=== PATIENT | female | born 1990 | race Caucasian/White ===

== ENCOUNTER 2021-04-18 06:58 | Inpatient (IN) | payer BC ==
[2021-04-18] MEDS ORDERED: Calcium Carbonate 500 MG Tab.Chew PO PRN (07:45)
[2021-04-18] MEDS ORDERED: Oxytocin/Lactated Ringers 10 UNIT/1,000 ML BAG IV SCH ×2 (07:45)
[2021-04-18] MEDS ORDERED: Nalbuphine 10 MG/1 ML Vial IVPUSH PRN (07:45)
[2021-04-18] MEDS ORDERED: Acetaminophen 325 MG Tab PO PRN (07:45)
[2021-04-18] MEDS ORDERED: Ondansetron 4 MG/2 ML SDV IVPUSH PRN ×2 (07:45→13:22)
[2021-04-18] MEDS ORDERED: Sodium Chloride 0.9% 10 ML Syringe FLUSH PRN (07:45)
[2021-04-18] MEDS ORDERED: Lidocaine 1% 50 ML MDV INJECT ONE (07:45)
[2021-04-18] MEDS ORDERED: Misoprostol 25 MCG (1/4 of 100 MCG) Tab ONE (08:13)
[2021-04-18] MEDS ORDERED: Misoprostol 25 MCG (1/4 of 100 MCG) Tab VAG PRN (08:15)
--- NOTE | 2021-04-18 08:31 | PCM.LDHP ---
L&D History of Present Illness - General Date of Service: 04/18/21 Admit Problem/Dx: Patient Status Order with Admit Dx/Problem 04/18/21 07:45 Patient Status [ADT] Routine Admission Diagnosis/Problem Admission Diagnosis/Problem Term Source of Information: Patient History Limitations: Reports: No Limitations - History of Present Illness Introduction:: 30 yo at 39+1 weeks gestation admitted for elective induction of labor due to borderline COURTNEY at 6.5. BPP was done on 04/09/21 and score was 8/8 and COURTNEY 6.2, EFW 7 lb 10 oz. Repeated BPP on 04/13/21 and COURTNEY was 6.5 and 8/8. otherwise has been unremarkable. She does have blood type A neg and antibody negative and received Rhogam 02/06/21. GBS negative. 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 She has been on va lacyclovir 500 mg bid since 36 weeks for suppression and she has no prodromal sx and examination of perineum today is negative for any lesions. Other labs include Rubella immune, RPR neg, HIV neg, HBsAg neg, HCV antibody neg. Her TSH was elevated and we did start her on levothyroxine in the first trimester, have been following TSH and current dose is 50 mcg daily. 1 hour glucola was 79. She breastfed with all 3 of her other babies and plans to breastfeed with this baby as well. She has been fully vaccinated for COVID and had her booster dose on 04/10/21. Has had Tdap and influenza vaccine with this . She has moderately severe varicose veins and has been wearing compression stockings during the . She has been feeling some BH, but no contractions. Membranes intact. On exam this am, cervix 1 cm, 50% effaced, vtx and station -2. Cytotec 25 mcg tab was inserted vaginally at 0815 for ripening of the cervix and induction. - Related Data Allergies/Adverse Reactions: Allergies Allergy/AdvReac Type Severity Reaction Status Date / Time amoxicillin Allergy Rash Verified 04/18/21 07:59 Home Medications: Home Meds Levothyroxine Sodium [Levothyroxine] 50 mcg PO DAILY 04/18/21 [History] No122/Iron/Folic Acid [ Multi Tablet] 1 each PO DAILY 04/18/21 [History] valACYclovir HCl [Valtrex] 500 mg PO BID 04/18/21 [History] Past Medical History Endocrine/Metabolic History: Reports: Hypothyroidism - Infectious Disease History Infectious Disease History: Reports: Herpes Social & Family History - Tobacco Use Tobacco Use Status *Q: Never Tobacco User Tobacco Use Within Last Twelve Months: No - Living Situation & Occupation Living situation: Reports: Occupation: Employed H&P Review of Systems - Review of Systems: Review Of Systems: See Below General: Reports: No Symptoms HEENT: Reports: No Symptoms Pulmonary: Reports: No Symptoms Cardiovascular: Reports: Edema Gastrointestinal: Reports: No Symptoms Genitourinary: Reports: No Symptoms Musculoskeletal: Reports: No Symptoms Skin: Reports: No Symptoms Psychiatric: Reports: No Symptoms Neurological: Reports: No Symptoms Hematologic/Lymphatic: Reports: No Symptoms Immunologic: Reports: No Symptoms L&D Exam - Exam Exam: See Below - Vital Signs Vital Signs: Last Vital Signs Temp 36.2 C 04/18/21 07:30 Pulse 58 L 04/18/21 07:30 Resp 16 04/18/21 07:30 BP 115/70 04/18/21 07:30 Pulse Ox 98 04/18/21 07:30 Weight: 89.494 kg - OB Specific Contraction Frequency (min): no contractions Movement: Active Heart Tones: Present Heart Tones per Min: 125 Heart Rate (FHR) Variability: Moderate (6-25 bpm) Presentation: Vertex Estimated Weight: 8 lb - Juan Score Juan Score Cervix Position: Midposition Juan Score Consistency: Medium Juan Score Effacement: 31-50% Juan Score Dilation: 1-2 cm Juan Score Infant's Station: -2 Juan Score Total: 5 - Exam General: Alert, Oriented HEENT: Conjunctiva Clear, EACs Clear, EOMI, Hearing Intact, Mucosa Moist & [place], Nares Patent, Normal Nasal Septum, Posterior Pharynx Clear, TMs Clear Neck: Supple, Trachea Midline Lungs: Normal Respiratory Effort Cardiovascular: Regular Rate, Regular Rhythm GI/Abdominal Exam: Soft, Non-Tender Rectal Exam: Deferred Genitourinary: Normal external exam, Enlarged uterus Back Exam: Normal Inspection, Full Range of Motion Extremities: Normal Inspection, Normal Range of Motion, Non-Tender, Normal Capillary Refill, Pedal Edema (wearing thigh high compression stockings) Skin: Warm, Dry, Intact Neurological: Cranial Nerves Intact Psychiatric: Alert, Normal Affect, Normal Mood - Patient Data Lab Results Last 24 hrs: Laboratory Results - last 24 hr 04/18/21 Range/Units 08:00 WBC 7.35 (3.98-10.04) K/mm3 RBC 3.90 L (3.98-5.22) M/mm3 Hgb 12.1 (11.2-15.7) gm/dl Hct 36.6 (34.1-44.9) % MCV 93.8 (79.4-94.8) fl MCH 31.0 (25.6-32.2) pg MCHC 33.1 (32.2-35.5) g/dl RDW Std Deviation 42.7 (36.4-46.3) fL Plt Count 155 L (182-369) K/mm3 MPV 9.8 (9.4-12.3) fl Result Diagrams: 04/18/21 08:00 - Problem List (1) 39 weeks gestation of SNOMED Code(s): 35099131 ICD Code: Z3A.39 - 39 WEEKS GESTATION OF Status: Acute Current Visit: Yes (2) COURTNEY (amniotic fluid index) borderline low SNOMED Code(s): 17710546, 028133728, 490020273 ICD Code: O28.8 - OTHER ABNORMAL FINDINGS ON SCREENING OF MOTHER Status: Acute Current Visit: Yes (3) Hypothyroidism SNOMED Code(s): 64119158 ICD Code: E03.9 - HYPOTHYROIDISM, UNSPECIFIED Status: Acute Current Visit: Yes (4) Rh negative status during SNOMED Code(s): 085256228 ICD Code: O26.899 - OTH RELATED CONDITIONS, UNSPECIFIED TRIMESTER; Z67.91 - UNSPECIFIED BLOOD TYPE, RH NEGATIVE Status: Acute Current Visit: Yes (5) Hx of herpes simplex infection SNOMED Code(s): 928912062 ICD Code: Z86.19 - PERSONAL HISTORY OF OTHER INFECTIOUS AND PARASITIC DISEASES Status: Acute Current Visit: Yes (6) Varicose veins during , antepartum SNOMED Code(s): 6462902137 ICD Code: O22.00 - VARICOSE VEINS OF LOW EXTRM IN , UNSP TRIMESTER Status: Acute Current Visit: Yes (7) Encounter for elective induction of labor SNOMED Code(s): 490084795 ICD Code: Z34.90 - ENCNTR FOR SUPRVSN OF NORMAL , UNSP, UNSP TRIME STER Status: Acute Current Visit: Yes Problem List Initiated/Reviewed/Updated: Yes Orders Last 24hrs: Active Orders 24 hr Category Date Time Status Patient Status [ADT] Routine ADT 04/18/21 07:45 Active Activity as Tolerated [RC] PFP Care 04/18/21 07:45 Active Communication Order [RC] ASDIRECTED Care 04/18/21 07:45 Active Communication Order [RC] ASDIRECTED Care 04/18/21 07:45 Active Communication Order [RC] ASDIRECTED Care 04/18/21 07:45 Active Communication Order [RC] ASDIRECTED Care 04/18/21 07:45 Active Heart Tones [RC] ASDIRECTED Care 04/18/21 07:45 Active Monitoring [RC] INTERMITTENT Care 04/18/21 07:45 Active Non Stress Test [RC] PER UNIT ROUTINE Care 04/18/21 07:45 Active Notify Provider [RC] ASDIRECTED Care 04/18/21 07:45 Active Notify Provider [RC] PFP Care 04/18/21 07:45 Active Notify Provider [RC] PRN Care 04/18/21 07:45 Active Peripheral IV Care [RC] . DIRECTED Care 04/18/21 07:45 Active Pump Management, Intrathecal [RC] ASDIRECTED Care 04/18/21 07:46 Active Urinary Catheter Assessment [RC] ASDIRECTED Care 04/18/21 07:45 Active Vaginal Exam [RC] ASDIRECTED Care 04/18/21 07:45 Active Vital Signs [RC] PER UNIT ROUTINE Care 04/18/21 07:45 Active Regular Diet [DIET] Diet 04/18/21 Breakfast Active CORONAVIRUS COVID-19 MALINA [MOLEC] Stat Lab 04/18/21 07:50 Received RAPID PLASMA REAGIN,RPR [CHEM] Routine Lab 04/18/21 08:00 Received TYPE AND SCREEN [BBK] Stat Lab 04/18/21 08:00 Received Acetaminophen [TylenoL] Med 04/18/21 07:45 Active 650 mg PO Q4H PRN Calcium Carbonate [Tums] Med 04/18/21 07:45 Active 1,000 mg PO Q2H PRN Lactated Ringers [Ringers, Lactated] 1,000 ml Med 04/18/21 07:45 Active IV ASDIRECTED Nalbuphine [Nubain] Med 04/18/21 07:45 Active 10 mg IVPUSH Q2H PRN Ondansetron [Zofran] Med 04/18/21 07:45 Active 4 mg IVPUSH Q4H PRN Oxytocin/Lactated Ringers [Pitocin in LR 10 Units/1,000 Med 04/18/21 07:45 Active ML] 10 unit in 1,000 ml IV .CONTINUOUS Oxytocin/Lactated Ringers [Pitocin in LR 10 Units/1,000 Med 04/18/21 07:45 Active ML] 10 unit in 1,000 ml IV TITRATE Sodium Chloride 0.9% [Saline Flush] Med 04/18/21 07:45 Active 10 ml FLUSH ASDIRECTED PRN miSOPROStoL [Cytotec] Med 04/18/21 08:15 Active 25 mcg VAG Q4HR PRN Electronic Heart Tones Ext w TOCO [WOMSER] Oth 04/18/21 07:45 Ordered Routine Electronic Heart Tones Internal [WOMSER] Per Unit Oth 04/18/21 07:45 Ordered Routine Peripheral IV Insertion Adult [OM.PC] Routine Oth 04/18/21 07:45 Ordered Resuscitation Status Routine Resus Stat 04/18/21 07:45 Ordered Medication Orders Acetaminophen (Acetaminophen 325 Mg Tab) 650 mg PO Q4H PRN PRN Reason: Pain (Mild 1-3) and fever Calcium Carbonate/Glycine (Calcium Carbonate 500 Mg Tab.Chew) 1,000 mg PO Q2H PRN PRN Reason: Indigestion Lactated Ringer's (Ringers, Lactated) 1,000 mls @ 100 mls/hr IV ASDIRECTED ELMA Oxytocin/Lactated Ringer's (Pitocin In Lr 10 Units/1,000 Ml) 10 unit in 1,000 mls @ 12 mls/hr IV TITRATE ELMA; Protocol Oxytocin/Lactated Ringer's (Pitocin In Lr 10 Units/1,000 Ml) 10 unit in 1,000 mls @ 500 mls/hr IV .CONTINUOUS ELMA Misoprostol (Misoprostol 25 Mcg (1/4 Of 100 Mcg) Tab) 25 mcg VAG Q4HR PRN PRN Reason: cervical ripening Nalbuphine HCl (Nalbuphine 10 Mg/1 Ml Vial) 10 mg IVPUSH Q2H PRN PRN Reason: Pain Ondansetron HCl (Ondansetron 4 Mg/2 Ml Sdv) 4 mg IVPUSH Q4H PRN PRN Reason: Nausea/Vomiting Sodium Chloride (Sodium Chloride 0.9% 10 Ml Syringe) 10 ml FLUSH ASDIRECTED PRN PRN Reason: Keep Vein Open Assessment/Plan Comment:: 1. Term in woman at 39+1 weeks gestation with borderline low COURTNEY at 6.5 - cytotec 25 mcg placed vaginally for cervical ripening and induction. Will repeat doses if needed and then use pitocin IV if needed. Anticipate vaginal delivery. NST is reactive and category I. GBS negative. Plans to have epidural. 2. History of HSV - has been on valacyclovir 500 mg bid for suppression and no symptoms of outbreak and no lesions noted on exam. 3. Blood type A neg, rhogam received antepartum - will check baby's blood type and repeat Rhogam if indicated. 4. Hypothyroidism - started on levothyroxine in first trimester and levels have been normal range. Continue current dose, 50 mcg daily and follow . 5. Plans to breastfeed - will plan for skin to skin after delivery and rooming in .
--- NOTE | 2021-04-18 12:36 | PCM.PNLD ---
Labor Progress Note - VS & Meds Vital Signs: Last Vital Signs Temp 36.2 C 04/18/21 07:30 Pulse 58 L 04/18/21 07:30 Resp 16 04/18/21 07:30 BP 115/70 04/18/21 07:30 Pulse Ox 98 04/18/21 07:30 Active Medications: Current Medications Acetaminophen (Acetaminophen 325 Mg Tab) 650 mg PO Q4H PRN PRN Reason: Pain (Mild 1-3) and fever Calcium Carbonate/Glycine (Calcium Carbonate 500 Mg Tab.Chew) 1,000 mg PO Q2H PRN PRN Reason: Indigestion Lactated Ringer's (Ringers, Lactated) 1,000 mls @ 100 mls/hr IV ASDIRECTED ELMA Oxytocin/Lactated Ringer's (Pitocin In Lr 10 Units/1,000 Ml) 10 unit in 1,000 mls @ 12 mls/hr IV TITRATE ELMA; Protocol Oxytocin/Lactated Ringer's (Pitocin In Lr 10 Units/1,000 Ml) 10 unit in 1,000 mls @ 500 mls/hr IV .CONTINUOUS ELMA Misoprostol (Misoprostol 25 Mcg (1/4 Of 100 Mcg) Tab) 25 mcg VAG Q4HR PRN PRN Reason: cervical ripening Last Admin: 04/18/21 08:14 Dose: 25 mcg Documented by: Nalbuphine HCl (Nalbuphine 10 Mg/1 Ml Vial) 10 mg IVPUSH Q2H PRN PRN Reason: Pain Ondansetron HCl (Ondansetron 4 Mg/2 Ml Sdv) 4 mg IVPUSH Q4H PRN PRN Reason: Nausea/Vomiting Sodium Chloride (Sodium Chloride 0.9% 10 Ml Syringe) 10 ml FLUSH ASDIRECTED PRN PRN Reason: Keep Vein Open Discontinued Medications Lidocaine HCl (Lidocaine 1% 50 Ml Mdv) 20 ml INJECT ONETIME ONE Stop: 04/18/21 07:46 Misoprostol (Misoprostol 25 Mcg (1/4 Of 100 Mcg) Tab) Confirm Administered Dose 25 mcg .ROUTE .STK-MED ONE Stop: 04/18/21 08:14 Last Admin: 04/18/21 08:49 Dose: Not Given Documented by: - Uterine Contractions Uterine Monitoring Mode: External [place] Contraction Frequency (min): 2-3 Contraction Duration (sec): 45-60 Contraction Intensity: Mild to Moderate Uterine Resting Tone: Soft - Monitoring Monitor Mode: External Ultrasound Heart Rate (FHR) Baseline: 140 Heart Rate (FHR) Variability: Moderate (6-25 bpm) Accelerations: Present, 15x15 Decelerations: None Strip Review: Category I - Vaginal Exam Dilation (cm): 2 Effacement (Percent): 60 Station: -2 Cervical Position: Midposition Sterile Vaginal Exam Performed By: Dinorah Womack - Labor Progress (Free Text) Labor Progress: Patient just started feeling contractions about 45 minutes ago. Mild intensity at this time. There has been some cervical change. Contractions about 2-3 minutes on monitor. Will start Pitocin IV to augment and manage expectantly. Membranes intact. Patient may have epidural when requested. CBC wnl except mild thrombocytopenia, platelets are 155. COVID test negative.
[2021-04-18] MEDS: Lactated Ringers 1,000 ML IV SCH ×3 (12:37→18:11)
[2021-04-18] MEDS ORDERED: ePHEDrine 50 MG/ML SDV IVPUSH PRN (13:22)
[2021-04-18] MEDS ORDERED: diphenhydrAMINE 50 MG/ML SDV IVPUSH PRN (13:22)
[2021-04-18] MEDS ORDERED: fentaNYL 100 MCG/2 ML SDV EPIDUR PRN (13:22)
--- NOTE | 2021-04-18 13:25 | PCM.PREANE ---
Preanesthetic Assessment - Procedure Proposed Procedure: Epidural - Anesthesia/Transfusion/Family Hx Anesthesia History: Prior Anesthesia Without Reaction Type of Anesthesia Reaction: Other (see below) (One out of three 1/3 epidurals had an inadvertant spinal with slight headache that did not require a blood patch.) Family History of Anesthesia Reaction: No Transfusion History: No Prior Transfusion(s) Intubation History: Unknown - Review of Systems General: No Symptoms Pulmonary: No Symptoms Cardiovascular: No Symptoms Gastrointestinal: No Symptoms (GERD- with ), Constipation (With ) Neurological: No Symptoms, Headache (migraines) Other: Reports: None, Thyroid Problems (hypothyroid) - Physical Assessment NPO Status Date: 04/18/21 NPO Status Time: 13:00 Vital Signs: Last Vital Signs Temp 36.2 C 04/18/21 07:30 Pulse 58 L 04/18/21 07:30 Resp 16 04/18/21 07:30 BP 115/70 04/18/21 07:30 Pulse Ox 98 04/18/21 07:30 Height: 1.7 m Weight: 89.494 kg ASA Class: 2 Mental Status: Alert & Oriented x3 Airway Class: Mallampati = 2 Dentition: Reports: Normal Dentition (upper and lower retainers permanent noted.), Caries Thyro-Mental Finger Breadths: 3 Mouth Opening Finger Breadths: 3 ROM/Head Extension: Full Lungs: Clear to Auscultation, Normal Respiratory Effort Cardiovascular: Regular Rate, Regular Rhythm, No Murmurs - Lab Values: Laboratory Last Values WBC 7.35 K/mm3 (3.98-10.04) 04/18/21 08:00 RBC 3.90 M/mm3 (3.98-5.22) L 04/18/21 08:00 Hgb 12.1 gm/dl (11.2-15.7) 04/18/21 08:00 Hct 36.6 % (34.1-44.9) 04/18/21 08:00 MCV 93.8 fl (79.4-94.8) 04/18/21 08:00 MCH 31.0 pg (25.6-32.2) 04/18/21 08:00 MCHC 33.1 g/dl (32.2-35.5) 04/18/21 08:00 RDW Std Deviation 42.7 fL (36.4-46.3) 04/18/21 08:00 Plt Count 155 K/mm3 (182-369) L 04/18/21 08:00 MPV 9.8 fl (9.4-12.3) 04/18/21 08:00 SARS-CoV-2 RNA (MALINA) Negative (NEGATIVE) 04/18/21 07:50 Blood Type A NEGATIVE 04/18/21 08:00 Gel Antibody Screen Positive 04/18/21 08:00 Above labs reviewed and noted and within acceptable ranges to proceed with epidural if desired. - Allergies Allergies/Adverse Reactions: Allergies Allergy/AdvReac Type Severity Reaction Status Date / Time amoxicillin Allergy Rash Verified 04/18/21 07:59 - Anesthesia Plan Pre-Op Medication Ordered: None - Acknowledgements Anesthesia Type Planned: Epidural Pt an Appropriate Candidate for the Planned Anesthesia: Yes Alternatives and Risks of Anesthesia Discussed w Pt/Guardian: Yes Pt/Guardian Understands and Agrees with Anesthesia Plan: Yes PreAnesthesia Questionnaire Cardiovascular History: Reports: Other (See Below) Other Cardiovascular History: Varicose veins [employer] History: Reports: , Other (See Below) Other OB/BYN History: Low fluid. hx chorioamnionitis and hemorrhage Endocrine/Metabolic History: Reports: Hypothyroidism - Infectious Disease History Infectious Disease History: Reports: Herpes - Past Surgical History HEENT Surgical History: Reports: Other (See Below) Other HEENT Surgeries/Procedures: [place] teeth - SUBSTANCE USE Tobacco Use Status *Q: Never Tobacco User Tobacco Use Within Last Twelve Months: No Recreational Drug Use History: No - HOME MEDS Home Medications: Home Meds Levothyroxine Sodium [Levothyroxine] 50 mcg PO DAILY 04/18/21 [History] No122/Iron/Folic Acid [ Multi Tablet] 1 each PO DAILY 04/18/21 [History] valACYclovir HCl [Valtrex] 500 mg PO BID 04/18/21 [History] - CURRENT (IN HOUSE) MEDS Current Meds: Current Medications Acetaminophen (Acetaminophen 325 Mg Tab) 650 mg PO Q4H PRN PRN Reason: Pain (Mild 1-3) and fever Calcium Carbonate/Glycine (Calcium Carbonate 500 Mg Tab.Chew) 1,000 mg PO Q2H PRN PRN Reason: Indigestion Lactated Ringer's (Ringers, Lactated) 1,000 mls @ 100 mls/hr IV ASDIRECTED ELMA Last Admin: 04/18/21 12:37 Dose: 40 mls/hr Documented by: Oxytocin/Lactated Ringer's (Pitocin In Lr 10 Units/1,000 Ml) 10 unit in 1,000 mls @ 12 mls/hr IV TITRATE ELMA; Protocol Last Titration: 04/18/21 13:07 Dose: 4 munits/min, 24 mls/hr Documented by: Oxytocin/Lactated Ringer's (Pitocin In Lr 10 Units/1,000 Ml) 10 unit in 1,000 mls @ 500 mls/hr IV .CONTINUOUS ELMA Misoprostol (Misoprostol 25 Mcg (1/4 Of 100 Mcg) Tab) 25 mcg VAG Q4HR PRN PRN Reason: cervical ripening Last Admin: 04/18/21 08:14 Dose: 25 mcg Documented by: Nalbuphine HCl (Nalbuphine 10 Mg/1 Ml Vial) 10 mg IVPUSH Q2H PRN PRN Reason: Pain Ondansetron HCl (Ondansetron 4 Mg/2 Ml Sdv) 4 mg IVPUSH Q4H PRN PRN Reason: Nausea/Vomiting Sodium Chloride (Sodium Chloride 0.9% 10 Ml Syringe) 10 ml FLUSH ASDIRECTED PRN PRN Reason: Keep Vein Open Discontinued Medications Lidocaine HCl (Lidocaine 1% 50 Ml Mdv) 20 ml INJECT ONETIME ONE Stop: 04/18/21 07:46 Misoprostol (Misoprostol 25 Mcg (1/4 Of 100 Mcg) Tab) Confirm Administered Dose 25 mcg .ROUTE .STK-MED ONE Stop: 04/18/21 08:14 Last Admin: 04/18/21 08:49 Dose: Not Given Documented by:
[2021-04-18] MEDS ORDERED: Bupivacaine/fentaNYL/NS 100 ML Bag EPIDUR SCH (13:30)
[2021-04-18] MEDS ORDERED: Bupivacaine 0.25% 10 ML SDV ONE (16:00)
--- NOTE | 2021-04-18 17:33 | PCM.PNLD ---
Labor Progress Note - VS & Meds Vital Signs: Last Vital Signs Temp 36.2 C 04/18/21 07:30 Pulse 58 L 04/18/21 07:30 Resp 16 04/18/21 07:30 BP 115/70 04/18/21 07:30 Pulse Ox 98 04/18/21 07:30 Active Medications: Current Medications Acetaminophen (Acetaminophen 325 Mg Tab) 650 mg PO Q4H PRN PRN Reason: Pain (Mild 1-3) and fever Calcium Carbonate/Glycine (Calcium Carbonate 500 Mg Tab.Chew) 1,000 mg PO Q2H PRN PRN Reason: Indigestion Last Admin: 04/18/21 17:03 Dose: 1,000 mg Documented by: Diphenhydramine HCl (Diphenhydramine 50 Mg/Ml Sdv) 25 mg IVPUSH Q6H PRN PRN Reason: pruritis Ephedrine Sulfate (Ephedrine 50 Mg/Ml Sdv) 5 mg IVPUSH ASDIRECTED PRN PRN Reason: Hypotension Fentanyl (Fentanyl 100 Mcg/2 Ml Sdv) 100 mcg EPIDUR Q3H PRN PRN Reason: Pain Last Admin: 04/18/21 16:12 Dose: 100 mcg Documented by: Fentanyl/Bupivacaine HCl (Bupivacaine/Fentanyl/Ns 100 Ml Bag) 100 ml EPIDUR ASDIRECTED ELMA Last Admin: 04/18/21 16:12 Dose: 100 ml Documented by: Lactated Ringer's (Ringers, Lactated) 1,000 mls @ 100 mls/hr IV ASDIRECTED ELMA Last Admin: 04/18/21 16:59 Dose: 999 mls/hr Documented by: Oxytocin/Lactated Ringer's (Pitocin In Lr 10 Units/1,000 Ml) 10 unit in 1,000 mls @ 12 mls/hr IV TITRATE ELMA; Protocol Last Titration: 04/18/21 16:41 Dose: 18 munits/min, 108 mls/hr Documented by: Oxytocin/Lactated Ringer's (Pitocin In Lr 10 Units/1,000 Ml) 10 unit in 1,000 mls @ 500 mls/hr IV .CONTINUOUS ELMA Miscellaneous Medication (Phenylephrine Hcl In 0.9% Nacl 1 Mg/10 Ml Syringe) 0.1 mg IVPUSH Q10M PRN PRN Reason: Hypotension Misoprostol (Misoprostol 25 Mcg (1/4 Of 100 Mcg) Tab) 25 mcg VAG Q4HR PRN PRN Reason: cervical ripening Last Admin: 04/18/21 08:14 Dose: 25 mcg Documented by: Nalbuphine HCl (Nalbuphine 10 Mg/1 Ml Vial) 10 mg IVPUSH Q2H PRN PRN Reason: Pain Ondansetron HCl (Ondansetron 4 Mg/2 Ml Sdv) 4 mg IVPUSH Q4H PRN PRN Reason: Nausea/Vomiting Ondansetron HCl (Ondansetron 4 Mg/2 Ml Sdv) 4 mg IVPUSH ONETIME PRN PRN Reason: Nausea/Vomiting Sodium Chloride (Sodium Chloride 0.9% 10 Ml Syringe) 10 ml FLUSH ASDIRECTED PRN PRN Reason: Keep Vein Open Discontinued Medications Lidocaine HCl (Lidocaine 1% 50 Ml Mdv) 20 ml INJECT ONETIME ONE Stop: 04/18/21 07:46 Misoprostol (Misoprostol 25 Mcg (1/4 Of 100 Mcg) Tab) Confirm Administered Dose 25 mcg .ROUTE .STK-MED ONE Stop: 04/18/21 08:14 Last Admin: 04/18/21 08:49 Dose: Not Given Documented by: - Uterine Contractions Uterine Monitoring Mode: External [place] Contraction Frequency (min): 2-3 Contraction Duration (sec): 60-80 Contraction Intensity: Strong Uterine Resting Tone: Soft - Monitoring Monitor Mode: External Ultrasound Heart Rate (FHR) Baseline: 130 Heart Rate (FHR) Variability: Moderate (6-25 bpm) Accelerations: Present, 15x15 Decelerations: None, Variable (1 deep variable to 90 noted, lasted 20 secs. Happened after epidural placed. No recurrence) Strip Review: Category I - Vaginal Exam Dilation (cm): 3 Effacement (Percent): 75 Station: -2 Cervical Position: Anterior Sterile Vaginal Exam Performed By: Dinorah Womack - Labor Progress (Free Text) Labor Progress: Patient is currently at 18 mU/min pitocin. Having strong regular contractions and requested epidural. It was placed and dosed at about 1700 and she is comfortable with that. There was 1 variable decel noted shortly after the epi dural was completed and no recurrence. Still moderate variability and accelerations. AROM performed to augment labor at 1720 and small amount of clear fluid drained. Cervix was 3 cm, anterior, 75% effaced and vertex. A/P: Still latent phase of labor. Pitocin at 18 mU/min, AROM completed to augment and epidural in place and patient is comfortable. Expectant management . Anticipate vaginal delivery.
[2021-04-18] MEDS ORDERED: Oxytocin/Lactated Ringers 20 UNIT/1,000 ML BAG ONE (18:56)
--- NOTE | 2021-04-18 18:59 | PCM.PNLD ---
Labor Progress Note - VS & Meds Vital Signs: Last Vital Signs Temp 36.2 C 04/18/21 07:30 Pulse 58 L 04/18/21 07:30 Resp 16 04/18/21 07:30 BP 115/70 04/18/21 07:30 Pulse Ox 98 04/18/21 07:30 Active Medications: Current Medications Acetaminophen (Acetaminophen 325 Mg Tab) 650 mg PO Q4H PRN PRN Reason: Pain (Mild 1-3) and fever Calcium Carbonate/Glycine (Calcium Carbonate 500 Mg Tab.Chew) 1,000 mg PO Q2H PRN PRN Reason: Indigestion Last Admin: 04/18/21 17:03 Dose: 1,000 mg Documented by: Diphenhydramine HCl (Diphenhydramine 50 Mg/Ml Sdv) 25 mg IVPUSH Q6H PRN PRN Reason: pruritis Ephedrine Sulfate (Ephedrine 50 Mg/Ml Sdv) 5 mg IVPUSH ASDIRECTED PRN PRN Reason: Hypotension Fentanyl (Fentanyl 100 Mcg/2 Ml Sdv) 100 mcg EPIDUR Q3H PRN PRN Reason: Pain Last Admin: 04/18/21 16:12 Dose: 100 mcg Documented by: Fentanyl/Bupivacaine HCl (Bupivacaine/Fentanyl/Ns 100 Ml Bag) 100 ml EPIDUR ASDIRECTED ELMA Last Admin: 04/18/21 16:12 Dose: 100 ml Documented by: Lactated Ringer's (Ringers, Lactated) 1,000 mls @ 100 mls/hr IV ASDIRECTED ELMA Last Admin: 04/18/21 18:11 Dose: 40 mls/hr Documented by: Oxytocin/Lactated Ringer's (Pitocin In Lr 10 Units/1,000 Ml) 10 unit in 1,000 mls @ 12 mls/hr IV TITRATE ELMA; Protocol Last Titration: 04/18/21 18:07 Dose: 20 munits/min, 120 mls/hr Documented by: Oxytocin/Lactated Ringer's (Pitocin In Lr 10 Units/1,000 Ml) 10 unit in 1,000 mls @ 500 mls/hr IV .CONTINUOUS ELMA Oxytocin/Lactated Ringer's (Pitocin In Lr 20 Units/1,000 Ml) 20 unit in 1,000 mls @ 66 mls/hr IV TITRATE ELMA; Protocol Miscellaneous Medication (Phenylephrine Hcl In 0.9% Nacl 1 Mg/10 Ml Syringe) 0.1 mg IVPUSH Q10M PRN PRN Reason: Hypotension Misoprostol (Misoprostol 25 Mcg (1/4 Of 100 Mcg) Tab) 25 mcg VAG Q4HR PRN PRN Reason: cervical ripening Last Admin: 04/18/21 08:14 Dose: 25 mcg Documented by: Nalbuphine HCl (Nalbuphine 10 Mg/1 Ml Vial) 10 mg IVPUSH Q2H PRN PRN Reason: Pain Ondansetron HCl (Ondansetron 4 Mg/2 Ml Sdv) 4 mg IVPUSH Q4H PRN PRN Reason: Nausea/Vomiting Ondansetron HCl (Ondansetron 4 Mg/2 Ml Sdv) 4 mg IVPUSH ONETIME PRN PRN Reason: Nausea/Vomiting Sodium Chloride (Sodium Chloride 0.9% 10 Ml Syringe) 10 ml FLUSH ASDIRECTED PRN PRN Reason: Keep Vein Open Discontinued Medications Lidocaine HCl (Lidocaine 1% 50 Ml Mdv) 20 ml INJECT ONETIME ONE Stop: 04/18/21 07:46 Misoprostol (Misoprostol 25 Mcg (1/4 Of 100 Mcg) Tab) Confirm Administered Dose 25 mcg .ROUTE .STK-MED ONE Stop: 04/18/21 08:14 Last Admin: 04/18/21 08:49 Dose: Not Given Documented by: - Uterine Contractions Uterine Monitoring Mode: External [place] Contraction Frequency (min): 2-3 Contraction Duration (sec): 60-80 Contraction Intensity: Strong Uterine Resting Tone: Soft - Monitoring Monitor Mode: External Ultrasound Heart Rate (FHR) Baseline: 130 Heart Rate (FHR) Variability: Moderate (6-25 bpm) Accelerations: Present, 15x15 (Has been in a sleep pattern) Decelerations: None Strip Review: Category I - Vaginal Exam Dilation (cm): 3 Effacement (Percent): 80 Station: -1 Cervical Position: Anterior Sterile Vaginal Exam Performed By: Dinorah Womack - Labor Progress (Free Text) Labor Progress: Patient is comfortable with epidural, but contractions have spaced out. Pitocin increased to 20 mu/min at about 1800. Minimal cervical change in the last 1.5 hours. Will increase pitocin further to get contraction pattern better and follow.
[2021-04-18] MEDS ORDERED: Oxytocin/Lactated Ringers 20 UNIT/1,000 ML BAG IV SCH (19:00)
[2021-04-18] MEDS ORDERED: Famotidine 20 MG Tab PO ONE (19:32)
--- NOTE | 2021-04-19 00:12 | PCM.DEL ---
L & D Note - General Info Date of Service: 04/18/21 Mother's Due Date: 04/24/21 - Delivery Note Labor: Augmented by ARM, Induced by Oxytocin Cervical Ripening Method: Misoprostil Delivery Outcome: Livebirth Infant Delivery Method: Spontaneous Vaginal Delivery-Single Delivery Mode: Spontaneous Presentation: Left Occiput Anterior (GAVIN) Nuchal Cord: Present (1 nuchal cord, also wrapped around arm and leg. Long cord.), Reduced Anesthesia Type: Epidural Amniotic Fluid Description: Clear Episiotomy Type: None Laceration: None Placenta: Intact, Spontaneous Cord: 3 Vessels Estimated Blood Loss: 100 Resuscitation Needed: No Tiller: Suctioned, Bulb Syringe, Stimulated, Warmed, [place] Used Provider: Dinorah Womack Score 1 min: 8 Score 5 min: 9 Delivery Comments (Free Text/Narrative):: 30 yo at 39+1 weeks gestation admitted for elective induction of labor due to borderline COURTNEY at 6.5. BPP was done on 04/09/21 and score was 8/8 and COURTNEY 6. 2, EFW 7 lb 10 oz. Repeated BPP on 04/13/21 and COURTNEY was 6.5 and 8/8. otherwise has been unremarkable. She does have blood type A neg and antibody negative and received Rhogam 02/06/21. GBS negative. 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 She has been on valacyclovir 500 mg bid since 36 weeks for suppression and she has no prodromal sx and examination of perineum today is negative for any lesions. Other labs include Rubella immune, RPR neg, HIV neg, HBsAg neg, HCV antibody neg. Her TSH was elevated and we did start her on levothyroxine in the first trimester, have been following TSH and current dose is 50 mcg daily. 1 hour glucola was 79. She breastfed with all 3 of her other babies and plans to breastfeed with this baby as well. She has been fully vaccinated for COVID and had her booster dose on 04/10/21. Has had Tdap and influenza vaccine with this . She has moderately severe varicose veins and has been wearing compression stockings during the . She has been feeling some BH, but no contractions. Membranes intact. On exam this am, cervix 1 cm, 50% effaced, vtx and station -2. Cytotec 25 mcg tab was inserted vaginally at 0815 for ripening of the cervix and induction. At 1215, cervix 2 cm, 50% effaced and pitocin IV started to continue induction. She had received epidural around 1700 and was comfortable. AROM performed at 1715 to augment labor and she was 3 cm at that time and pitocin at 18 mu/min. contractions spaced out so pitocin was increased up to 22 mu/min. At 2114 she was still only 3 cm dilated and I was called to come in and evaluate and we decided to place IUPC which was done at about 2129. Cervix was 4-5 cm, 80% effaced and station -1 at that time. Resting tone was 15-20 mm Hg and MVU were about 300. We did increase pitocin to 23 mU/min. By 2314 she was complete, station +2 and uncomfortable with contractions. I came in and we had her set up to push and baby delivered in 1 push. Time of delivery was 2327. Baby girl. There was nuchal cord x 1 that was loose and easily reduced. The cord was also wrapped around her arm and leg and was a long cord. 3 vessels in the cord. Mouth and nose were suctioned with bulb syringe at the perineum, dried and stimulated and baby placed skin to skin on mother's abdomen. Cord was clamped and cut once it stopped pulsating. Placenta delivered spontaneously at 2333 and was intact. There was no perineal tear. Fundus firmed down nicely. Bimanual exam performed and a few clots were expressed. EBL 100 ml. Both Mom and baby were left in the delivery room in stable condition. Induction Criteria - Juan Score Juan Score Dilation: 1-2 cm Juan Score Effacement: 40-50% Juan Score Infant's Station: -2 Juan Score Consistency: Medium Juan Score Cervix Position: Midposition Juan Score Total: 5 Juan Score Presenting Part: Reports: Cephalic - Induction Gestational Age >/= 39 wks: Yes Medical Indication: Borderline low COURTNEY at 6.5 Estimated Pelvis: Reports: Adequate Reassuring Monitoring Strip: Yes Absence of Tachy Systole: Yes - Augmentation Estimated Pelvis: Reports: Adequate Weight Estimated:: Reports: AGA Reassuring Monitoring Strip: Yes Absence of Tachy Systole: Yes - General Info Date of Service: 04/18/21 Admission Dx/Problem (Free Text): Patient Status Order with Admit Dx/Problem 04/18/21 07:45 Patient Status [ADT] Routine Admission Diagnosis/Problem Admission Diagnosis/Problem Term - Patient Data Vitals - Most Recent: Last Vital Signs Temp 36.2 C 04/18/21 07:30 Pulse 58 L 04/18/21 07:30 Resp 16 04/18/21 07:30 BP 115/70 04/18/21 07:30 Pulse Ox 98 04/18/21 07:30 Weight - Most Recent: 89.494 kg I&O - Last 24 Hours: Intake & Output 04/18/21 04/18/21 04/19/21 14:59 22:59 05:59 Intake Total 2500 Balance 2500 Lab Results Last 24 Hours: Laboratory Results - last 24 hr 04/18/21 04/18/21 04/18/21 Range/Units 07:50 08:00 08:00 WBC 7.35 (3.98-10.04) K/mm3 RBC 3.90 L (3.98-5.22) M/mm3 Hgb 12.1 (11.2-15.7) gm/dl Hct 36.6 (34.1-44.9) % MCV 93.8 (79.4-94.8) fl MCH 31.0 (25.6-32.2) pg MCHC 33.1 (32.2-35.5) g/dl RDW Std Deviation 42.7 (36.4-46.3) fL Plt Count 155 L (182-369) K/mm3 MPV 9.8 (9.4-12.3) fl SARS-CoV-2 RNA (MALINA) Negative (NEGATIVE) Blood Type A NEGATIVE Gel Antibody Screen Positive Med Orders - Current: Current Medications Acetaminophen (Acetaminophen 325 Mg Tab) 650 mg PO Q4H PRN PRN Reason: Pain (Mild 1-3) and fever Calcium Carbonate/Glycine (Calcium Carbonate 500 Mg Tab.Chew) 1,000 mg PO Q2H PRN PRN Reason: Indigestion Last Admin: 04/18/21 17:03 Dose: 1,000 mg Documented by: Diphenhydramine HCl (Diphenhydramine 50 Mg/Ml Sdv) 25 mg IVPUSH Q6H PRN PRN Reason: pruritis Ephedrine Sulfate (Ephedrine 50 Mg/Ml Sdv) 5 mg IVPUSH ASDIRECTED PRN PRN Reason: Hypotension Fentanyl (Fentanyl 100 Mcg/2 Ml Sdv) 100 mcg EPIDUR Q3H PRN PRN Reason: Pain Last Admin: 04/18/21 16:12 Dose: 100 mcg Documented by: Fentanyl/Bupivacaine HCl (Bupivacaine/Fentanyl/Ns 100 Ml Bag) 100 ml EPIDUR ASDIRECTED ELMA Last Admin: 04/18/21 16:12 Dose: 100 ml Documented by: Lactated Ringer's (Ringers, Lactated) 1,000 mls @ 100 mls/hr IV ASDIRECTED ELMA Last Admin: 04/18/21 18:11 Dose: 40 mls/hr Documented by: Oxytocin/Lactated Ringer's (Pitocin In Lr 10 Units/1,000 Ml) 10 unit in 1,000 mls @ 12 mls/hr IV TITRATE ELMA; Protocol Last Titration: 04/18/21 18:07 Dose: 20 munits/min, 120 mls/hr Documented by: Oxytocin/Lactated Ringer's (Pitocin In Lr 10 Units/1,000 Ml) 10 unit in 1,000 mls @ 500 mls/hr IV .CONTINUOUS ELMA Oxytocin/Lactated Ringer's (Pitocin In Lr 20 Units/1,000 Ml) 20 unit in 1,000 mls @ 66 mls/hr IV TITRATE ELMA; Protocol Last Admin: 04/18/21 19:00 Dose: 66 mls/hr Documented by: Levothyroxine Sodium (Levothyroxine 50 Mcg Tab) 50 mcg PO ACBREAKFAST ELMA Miscellaneous Medication (Phenylephrine Hcl In 0.9% Nacl 1 Mg/10 Ml Syringe) 0.1 mg IVPUSH Q10M PRN PRN Reason: Hypotension Misoprostol (Misoprostol 25 Mcg (1/4 Of 100 Mcg) Tab) 25 mcg VAG Q4HR PRN PRN Reason: cervical ripening Last Admin: 04/18/21 08:14 Dose: 25 mcg Documented by: Nalbuphine HCl (Nalbuphine 10 Mg/1 Ml Vial) 10 mg IVPUSH Q2H PRN PRN Reason: Pain Ondansetron HCl (Ondansetron 4 Mg/2 Ml Sdv) 4 mg IVPUSH Q4H PRN PRN Reason: Nausea/Vomiting Ondansetron HCl (Ondansetron 4 Mg/2 Ml Sdv) 4 mg IVPUSH ONETIME PRN PRN Reason: Nausea/Vomiting Sodium Chloride (Sodium Chloride 0.9% 10 Ml Syringe) 10 ml FLUSH ASDIRECTED PRN PRN Reason: Keep Vein Open Discontinued Medications Famotidine (Famotidine 20 Mg Tab) 20 mg PO ONETIME ONE Stop: 04/18/21 19:33 Last Admin: 04/18/21 19:41 Dose: 20 mg Documented by: Oxytocin/Lactated Ringer's (Pitocin In Lr 20 Units/1,000 Ml) Confirm Administered Dose 20 unit in 1,000 mls @ as directed .ROUTE .STK-MED ONE Stop: 04/18/21 18:57 Lidocaine HCl (Lidocaine 1% 50 Ml Mdv) 20 ml INJECT ONETIME ONE Stop: 04/18/21 07:46 Misoprostol (Misoprostol 25 Mcg (1/4 Of 100 Mcg) Tab) Confirm Administered Dose 25 mcg .ROUTE .STK-MED ONE Stop: 04/18/21 08:14 Last Admin: 04/18/21 08:49 Dose: Not Given Documented by: - Exam Urinary Catheter Total Time: 0Days 0Hours General: Alert, Oriented, Cooperative, No Acute Distress HEENT: Pupils Equal, Mucous Membr. Moist/[place] Lungs: Normal Respiratory Effort Cardiovascular: Regular Rate, Regular Rhythm GI/Abdominal Exam: Soft (Female) Exam: Enlarged Uterus (uterus firm), Vaginal Bleeding Back Exam: Normal Inspection, Full Range of Motion Extremities: Normal Inspection, Pedal Edema Skin: Warm, Dry, Intact Neurological: No New Focal Deficit Psy/Mental Status: Alert, Normal Affect, Normal Mood - Problem List & Annotations (1) 39 weeks gestation of SNOMED Code(s): 64005955 Code(s): Z3A.39 - 39 WEEKS GESTATION OF Status: Acute Current Visit: Yes (2) COURTNEY (amniotic fluid index) borderline low SNOMED Code(s): 28520160, 486909724, 093220301 Code(s): O28.8 - OTHER ABNORMAL FINDINGS ON SCREENING OF MOTHER Status: Acute Current Visit: Yes (3) Hypothyroidism SNOMED Code(s): 01135803 Code(s): E03.9 - HYPOTHYROIDISM, UNSPECIFIED Status: Acute Current Visit: Yes (4) Rh negative status during SNOMED Code(s): 450034864 Code(s): O26.899 - OTH RELATED CONDITIONS, UNSPECIFIED TRIMESTER; Z67.91 - UNSPECIFIED BLOOD TYPE, RH NEGATIVE Status: Acute Current Visit: Yes (5) Hx of herpes simplex infection SNOMED Code(s): 053882599 Code(s): Z86.19 - PERSONAL HISTORY OF OTHER INFECTIOUS AND PARASITIC DISEASES Status: Acute Current Visit: Yes (6) Varicose veins during , antepartum SNOMED Code(s): 8858863609 Code(s): O22.00 - VARICOSE VEINS OF LOW EXTRM IN , UNSP TRIMESTER Status: Acute Current Visit: Yes (7) Encounter for elective induction of labor SNOMED Code(s): 024058155 Code(s): Z34.90 - ENCNTR FOR SUPRVSN OF NORMAL , UNSP, UNSP TRIMESTER Status: Resolved Current Visit: Yes (8) Normal spontaneous vaginal delivery SNOMED Code(s): 70000126, 652617114 Code(s): O80 - ENCOUNTER FOR FULL-TERM UNCOMPLICATED DELIVERY Status: Acute Current Visit: Yes (9) Breast feeding status of mother SNOMED Code(s): 008407876 Code(s): Z39.1 - ENCOUNTER FOR CARE AND EXAMINATION OF LACTATING MOTHER Status: Acute Current Visit: Yes - Problem List Review Problem List Initiated/Reviewed/Updated: Yes - My Orders Last 24 Hours: My Active Orders 04/18/21 Breakfast Regular Diet [DIET] 04/18/21 07:45 Patient Status [ADT] Routine Activity as Tolerated [RC] PFP Communication Order [RC] ASDIRECTED Communication Order [RC] ASDIRECTED Communication Order [RC] ASDIRECTED Communication Order [RC] ASDIRECTED Monitoring [RC] INTERMITTENT Notify Provider [RC] ASDIRECTED Notify Provider [RC] PFP Notify Provider [RC] PRN Peripheral IV Care [RC] . DIRECTED Urinary Catheter Assessment [RC] ASDIRECTED Acetaminophen [TylenoL] 650 mg PO Q4H PRN Calcium Carbonate [Tums] 1,000 mg PO Q2H PRN Lactated Ringers [Ringers, Lactated] 1,000 ml IV ASDIRECTED Nalbuphine [Nubain] 10 mg IVPUSH Q2H PRN Ondansetron [Zofran] 4 mg IVPUSH Q4H PRN Oxytocin/Lactated Ringers [Pitocin in LR 10 Units/1,000 ML] 10 unit in 1,000 ml IV .CONTINUOUS Oxytocin/Lactated Ringers [Pitocin in LR 10 Units/1,000 ML] 10 unit in 1,000 ml IV TITRATE Sodium Chloride 0.9% [Saline Flush] 10 ml FLUSH ASDIRECTED PRN Electronic Heart Tones Ext w TOCO [WOMSER] Routine Electronic Heart Tones Internal [WOMSER] Per Unit Routine Peripheral IV Insertion Adult [OM.PC] Routine Resuscitation Status Routine 04/18/21 07:46 Pump Management, Intrathecal [RC] ASDIRECTED 04/18/21 08:00 ANTIBODY IDENTIFICATION [BBK] Stat RAPID PLASMA REAGIN,RPR [CHEM] Routine TYPE AND SCREEN [BBK] Stat 04/18/21 08:15 miSOPROStoL [Cytotec] 25 mcg VAG Q4HR PRN 04/18/21 19:00 Oxytocin/Lactated Ringers [Pitocin in LR 20 Units/1,000 ML] 20 unit in 1,000 ml IV TITRATE 04/18/21 23:50 Patient Status Manage Transfer [TRANSFER] Routine 04/19/21 06:00 Levothyroxine [Synthroid] 50 mcg PO ACBREAKFAST - Assessment Assessment:: Term delivered by , no perineal laceration. Plans to breastfeed. RH negative Hypothyroidism Hx of genital herpes. - Plan Plan:: 1. Term in G4 now P4 woman at 39+1 weeks gestation with borderline low COURTNEY at 6.5 - GBS negative. - . Routine care 2. History of HSV - has been on valacyclovir 500 mg bid for suppression and no symptoms of outbreak and no lesions noted on exam. 3. Blood type A neg, rhogam received antepartum - will check baby's blood type and repeat Rhogam if indicated. 4. Hypothyroidism - started on levothyroxine in first trimester and levels have been normal range. Continue current dose, 50 mcg daily and follow . 5. Plans to breastfeed - skin to skin after delivery and rooming in . support.
[2021-04-19] MEDS ORDERED: Simethicone 80 MG Tab.Chew PO PRN (00:13)
[2021-04-19] MEDS ORDERED: Docusate Sodium 100 MG Cap PO PRN (00:13)
[2021-04-19] MEDS ORDERED: Hydrocortisone Acetate 25 MG Supp RECTAL PRN (00:13)
[2021-04-19] MEDS ORDERED: Witch Hazel Medicated Pads 40/Jar TOP PRN (00:13)
[2021-04-19] MEDS ORDERED: Benzocaine/Menthol 20%-0.5% Spray 78 GM Cannister TOP PRN (00:13)
[2021-04-19] MEDS: Ibuprofen 600 MG Tab PO PRN ×3 (01:07→18:53)
[2021-04-19] MEDS: Levothyroxine 50 MCG Tab PO SCH (07:38)
--- NOTE | 2021-04-19 14:20 | PCM48HPAN ---
Post Anesthesia Note - EVALUATION WITHIN 48HRS OF ANESTHETIC Vital Signs in Normal Range: Yes Patient Participated in Evaluation: Yes Respiratory Function Stable: Yes Airway Patent: Yes Cardiovascular Function Stable: Yes Hydration Status Stable: Yes Pain Control Satisfactory: Yes Nausea and Vomiting Control Satisfactory: Yes Mental Status Recovered: Yes Vital Signs: Last Vital Signs Temp 36.7 C 04/19/21 07:40 Pulse 65 04/19/21 07:40 Resp 14 04/19/21 07:40 BP 116/65 04/19/21 07:40 Pulse Ox 97 04/19/21 07:40
--- NOTE | 2021-04-19 18:27 | PCM.PNPP ---
- General Info Date of Service: 04/19/21 Admission Dx/Problem (Free Text): Patient Status Order with Admit Dx/Problem 04/18/21 07:45 Patient Status [ADT] Routine Admission Diagnosis/Problem Admission Diagnosis/Problem Term Subjective Update: Patient is doing well. Vaginal bleeding is slowing, only a small clot today. Voiding well. is going well. Denies nipple pain or bruising. Only using occasional ibuprofen for cramping with nursing. Baby's blood type was A pos, so she did receive her Rhogam today. Functional Status: Reports: Pain Controlled, Tolerating Diet, Ambulating, Urinating - Review of Systems General: Reports: No Symptoms HEENT: Reports: No Symptoms Pulmonary: Reports: No Symptoms Cardiovascular: Reports: Edema (wearing pressure stockings) Gastrointestinal: Reports: No Symptoms Genitourinary: Reports: No Symptoms Musculoskeletal: Reports: No Symptoms Skin: Reports: No Symptoms Neurological: Reports: No Symptoms Psychiatric: Reports: No Symptoms - General Info Date of Service: 04/19/21 - Patient Data Vital Signs - Most Recent: Last Vital Signs Temp 37.0 C 04/19/21 15:40 Pulse 68 04/19/21 15:40 Resp 14 04/19/21 15:40 BP 127/73 04/19/21 15:40 Pulse Ox 98 04/19/21 15:40 Weight - Most Recent: 89.494 kg I&O - Last 24 Hours: Intake & Output 04/19/21 04/19/21 04/19/21 06:59 14:59 22:59 Intake Total 122 Output Total Balance 122 Lab Results - Last 24 Hours: Laboratory Results - last 24 hr 04/19/21 Range/Units 05:23 Blood Type A NEGATIVE Gel Antibody Screen Positive Screen 0 ros/5 flds - neg RhIG Candidate? Yes Rhogam Indicated Yes, baby rh pos H Med Orders - Current: Current Medications Benzocaine/Menthol (Benzocaine/Menthol 20%-0.5% [place] 78 Gm Cannister) 0 gm TOP ASDIRECTED PRN PRN Reason: Perineal Comfort Measure Last Admin: 04/19/21 01:07 MDT Dose: 1 canister Documented by: Docusate Sodium (Docusate Sodium 100 Mg Cap) 100 mg PO BID PRN PRN Reason: Constipation Hydrocortisone Acetate (Hydrocortisone Acetate 25 Mg Supp) 25 mg RECTAL BID PRN PRN Reason: Hemorrhoid pain Ibuprofen (Ibuprofen 600 Mg Tab) 600 mg PO Q6H PRN PRN Reason: Mild pain or fever Last Admin: 04/19/21 08:01 Dose: 600 mg Documented by: Levothyroxine Sodium (Levothyroxine 50 Mcg Tab) 50 mcg PO ACBREAKFAST [facility] Last Admin: 04/19/21 07:38 Dose: 50 mcg Documented by: Simethicone (Simethicone 80 Mg Tab.Chew) 80 mg PO Q4H PRN PRN Reason: Gas Witch Surekha (Witch Surekha Medicated Pads 40/Jar) 1 pad TOP ASDIRECTED PRN PRN Reason: Perineal Comfort Measure Last Admin: 04/19/21 01:06 MDT Dose: 1 tub Documented by: Discontinued Medications Acetaminophen (Acetaminophen 325 Mg Tab) 650 mg PO Q4H PRN PRN Reason: Pain (Mild 1-3) and fever Calcium Carbonate/Glycine (Calcium Carbonate 500 Mg Tab.Chew) 1,000 mg PO Q2H PRN PRN Reason: Indigestion Last Admin: 04/18/21 17:03 Dose: 1,000 mg Documented by: Diphenhydramine HCl (Diphenhydramine 50 Mg/Ml Sdv) 25 mg IVPUSH Q6H PRN PRN Reason: pruritis Ephedrine Sulfate (Ephedrine 50 Mg/Ml Sdv) 5 mg IVPUSH ASDIRECTED PRN PRN Reason: Hypotension Famotidine (Famotidine 20 Mg Tab) 20 mg PO ONETIME ONE Stop: 04/18/21 19:33 Last Admin: 04/18/21 19:41 Dose: 20 mg Documented by: Fentanyl (Fentanyl 100 Mcg/2 Ml Sdv) 100 mcg EPIDUR Q3H PRN PRN Reason: Pain Last Admin: 04/18/21 16:12 Dose: 100 mcg Documented by: Fentanyl/Bupivacaine HCl (Bupivacaine/Fentanyl/Ns 100 Ml Bag) 100 ml EPIDUR ASDIRECTED [facility] Last Admin: 04/18/21 16:12 Dose: 100 ml Documented by: Lactated Ringer's (Ringers, Lactated) 1,000 mls @ 100 mls/hr IV ASDIRECTED [facility] Last Admin: 04/18/21 18:11 Dose: 40 mls/hr Documented by: Oxytocin/Lactated Ringer's (Pitocin In Lr 10 Units/1,000 Ml) 10 unit in 1,000 mls @ 12 mls/hr IV TITRATE ELMA; Protocol Last Titration: 04/18/21 18:07 Dose: 20 munits/min, 120 mls/hr Documented by: Oxytocin/Lactated Ringer's (Pitocin In Lr 10 Units/1,000 Ml) 10 unit in 1,000 mls @ 500 mls/hr IV .CONTINUOUS ELMA Oxytocin/Lactated Ringer's (Pitocin In Lr 20 Units/1,000 Ml) 20 unit in 1,000 mls @ 66 mls/hr IV TITRATE [place]MA; Protocol Last Admin: 04/18/21 19:00 Dose: 66 mls/hr Documented by: Oxytocin/Lactated Ringer's (Pitocin In Lr 20 Units/1,000 Ml) Confirm Administered Dose 20 unit in 1,000 mls @ as directed .ROUTE .[employer] the Donation ONE Stop: 04/18/21 18:57 Last Admin: 04/19/21 00:08 Dose: Not Given Documented by: Lidocaine HCl (Lidocaine 1% 50 Ml Mdv) 20 ml INJECT ONETIME ONE Stop: 04/18/21 07:46 Last Admin: 04/19/21 00:08 Dose: Not Given Documented by: Miscellaneous Medication (Phenylephrine Hcl In 0.9% Nacl 1 Mg/10 Ml Syringe) 0.1 mg IVPUSH Q10M PRN PRN Reason: Hypotension Misoprostol (Misoprostol 25 Mcg (1/4 Of 100 Mcg) Tab) Confirm Administered Dose 25 mcg .ROUTE .STK-MED ONE Stop: 04/18/21 08:14 Last Admin: 04/18/21 08:49 Dose: Not Given Documented by: Misoprostol (Misoprostol 25 Mcg (1/4 Of 100 Mcg) Tab) 25 mcg VAG Q4HR PRN PRN Reason: cervical ripening Last Admin: 04/18/21 08:14 Dose: 25 mcg Documented by: Nalbuphine HCl (Nalbuphine 10 Mg/1 Ml Vial) 10 mg IVPUSH Q2H PRN PRN Reason: Pain Ondansetron HCl (Ondansetron 4 Mg/2 Ml Sdv) 4 mg IVPUSH Q4H PRN PRN Reason: Nausea/Vomiting Ondansetron HCl (Ondansetron 4 Mg/2 Ml Sdv) 4 mg IVPUSH ONETIME PRN PRN Reason: Nausea/Vomiting Sodium Chloride (Sodium Chloride 0.9% 10 Ml Syringe) 10 ml FLUSH ASDIRECTED PRN PRN Reason: Keep Vein Open - Infant Interaction Disposition, : [place] at Bedside Infant Interaction: Holding Feeding: Breastfed ; Nursed Well Support Person: - Recovery Exam Fundal Tone: Firm Fundal Level: 2 Fingerbreadths Below Umbilicus Fundal Placement: Right Lochia Amount: Scant, Small Lochia Color: Rubra/Red Perineum Description: Intact, Minimal Bruising/Swelling Episiotomy/Laceration: None Bladder Status: Voiding Urinary Elimination: Voided - Exam General: Alert, Oriented HEENT: Pupils Equal, Pupils Reactive Neck: Supple Lungs: Normal Respiratory Effort Cardiovascular: Regular Rate, Regular Rhythm GI/Abdominal Exam: Soft Extremities: Pedal Edema (varicose veins) Skin: Warm, Dry, Intact Neurological: No New Focal Deficit Psy/Mental Status: Alert, Normal Affect, Normal Mood - Problem List & Annotations (1) 39 weeks gestation of SNOMED Code(s): 11254069 Code(s): Z3A.39 - 39 WEEKS GESTATION OF Status: Acute Current Visit: Yes (2) COURTNEY (amniotic fluid index) borderline low SNOMED Code(s): 20309746, 474836390, 103850036 Code(s): O28.8 - OTHER ABNORMAL FINDINGS ON SCREENING OF MOTHER Status: Resolved Current Visit: Yes (3) Hypothyroidism SNOMED Code(s): 90344005 Code(s): E03.9 - HYPOTHYROIDISM, UNSPECIFIED Status: Acute Current Visit: Yes (4) Rh negative status during SNOMED Code(s): 036196347 Code(s): O26.899 - OTH RELATED CONDITIONS, UNSPECIFIED TRIMESTER; Z67.91 - UNSPECIFIED BLOOD TYPE, RH NEGATIVE Status: Acute Current Visit: Yes (5) Hx of herpes simplex infection SNOMED Code(s): 664344553 Code(s): Z86.19 - PERSONAL HISTORY OF OTHER INFECTIOUS AND PARASITIC DISEASES Status: Acute Current Visit: Yes (6) Varicose veins during , antepartum SNOMED Code(s): 5817022856 Code(s): O22.00 - VARICOSE VEINS OF LOW EXTRM IN , UNSP TRIMESTER Status: Acute Current Visit: Yes (7) Encounter for elective induction of labor SNOMED Code(s): 881162558 Code(s): Z34.90 - ENCNTR FOR SUPRVSN OF NORMAL , UNSP, UNSP TRIMEST ER Status: Resolved Current Visit: Yes (8) Normal spontaneous vaginal delivery SNOMED Code(s): 16522977, 636534396 Code(s): O80 - ENCOUNTER FOR FULL-TERM UNCOMPLICATED DELIVERY Status: Acute Current Visit: Yes (9) Breast feeding status of mother SNOMED Code(s): 117590500 Code(s): Z39.1 - ENCOUNTER FOR CARE AND EXAMINATION OF LACTATING MOTHER Status: Acute Current Visit: Yes - Problem List Review Problem List Initiated/Reviewed/Updated: Yes - My Orders Last 24 Hours: My Active Orders 04/19/21 00:13 Benzocaine/Menthol [Dermoplast Pain Relief 20%-0.5% [place]] See Dose Instructions TOP ASDIRECTED PRN Docusate Sodium [Colace] 100 mg PO BID PRN Hydrocortisone Acetate [Anucort-HC] 25 mg RECTAL BID PRN Ibuprofen [Motrin] 600 mg PO Q6H PRN Simethicone 80 mg PO Q4H PRN witch Surekha [Tucks] 1 pad TOP ASDIRECTED PRN Heat Therapy [OM.PC] PRN 04/19/21 00:13 Patient Status [ADT] Routine Activity as Tolerated [RC] PER UNIT ROUTINE May Shower [RC] ASDIRECTED Up ad Jen [RC] ASDIRECTED Vital Signs [RC] 03,,15, Assess Lochia [WOMSER] Per Unit Routine Assess Uterine Involution [WOMSER] Per Unit Routine Breast Pump [WOMSER] Per Unit Routine Medication Administration Instruction [OM.PC] Routine Perineal Care [OM.PC] Per Unit Routine Peripheral IV Discontinue [OM.PC] Routine Sitz Bath [OM.PC] Per Unit Routine 04/19/21 06:00 Levothyroxine [Synthroid] 50 mcg PO ACBREAKFAST 04/20/21 00:13 Heat Therapy [OM.PC] PRN - Assessment Assessment:: Term delivered by , no perineal laceration. Plans to breastfeed - nursing well, about every 2-3 hours. Denies nipple pain or bruising. RH negative - baby's blood type is A pos Hypothyroidism Hx of genital herpes. - Plan Plan:: 1. Term in G4 now P4 woman at 39+1 weeks gestation with borderline low COURTNEY at 6.5 - GBS negative. - . Routine care 2. History of HSV - has been on valacyclovir 500 mg bid for suppression and no symptoms of outbreak and no lesions noted on exam. 3. Blood type A neg, rhogam received antepartum - Rhogam given today due to baby blood type of A pos. 4. Hypothyroidism - started on levothyroxine in first trimester and levels have been normal range. Continue current dose, 50 mcg daily and follow . 5. Plans to breastfeed - skin to skin after delivery and rooming in . contnue support.
[2021-04-20] MEDS: Ibuprofen 600 MG Tab PO PRN (04:50)
[2021-04-20] MEDS: Levothyroxine 50 MCG Tab PO SCH (05:46)
--- NOTE | 2021-04-20 09:43 | PCM.DCSUM1 ---
Discharge Summary - Hospital Course Free Text/Narrative:: 30 yo at 39+1 weeks gestation admitted for elective induction of labor due to borderline COURTNEY at 6.5. BPP was done on 04/09/21 and score was 8/8 and COURTNEY 6.2, EFW 7 lb 10 oz. Repeated BPP on 04/13/21 and COURTNEY was 6.5 and 8/8. otherwise has been unremarkable. She does have blood type A neg and antibody negative and received Rhogam 02/06/21. GBS negative. 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 She has been on valacyclovir 500 mg bid since 36 weeks for suppression and she has no prodromal sx and examination of perineum today is negative for any lesions. Other labs include Rubella immune, RPR neg, HIV neg, HBsAg neg, HCV antibody neg. Her TSH was elevated and we did start her on levothyroxine in the first trimester, have been following TSH and current dose is 50 mcg daily. 1 hour glucola was 79. She breastfed with all 3 of her other babies and plans to breastfeed with this baby as well. She has been fully vaccinated for COVID and had her booster dose on 04/10/21. Has had Tdap and influenza vaccine with this . She has moderately severe varicose veins and has been wearing compression stockings during the . She has been feeling some BH, but no contractions. Membranes intact. On exam this am, cervix 1 cm, 50% effaced, vtx and station -2. Cytotec 25 mcg tab was inserted vaginally at 0815 for ripening of the cervix and induction. At 1215, cervix 2 cm, 50% effaced and pitocin IV started to continue induction. She had received epidural around 1700 and was comfortable. AROM performed at 1715 to augment labor and she was 3 cm at that time and pitocin at 18 mu/min. contractions spaced out so pitocin was increased up to 22 mu/min. At 2114 she was still only 3 cm dilated and I was called to come in and evaluate and we decided to place IUPC which was done at about 2129. Cervix was 4-5 cm, 80% effaced and station -1 at that time. Resting tone was 15-20 mm Hg and MVU were about 300. We did increase pitocin to 23 mU/min. By 2314 she was complete, station +2 and uncomfortable with contractions. I came in and we had her set up to push and baby delivered in 1 push. Time of delivery was 2327. Baby girl. weight was 6 lb 8 oz (2.95 kg) There was nuchal cord x 1 that was loose and easily reduced. The cord was also wrapped around her arm and leg and was a long cord. 3 vessels in the cord. Mouth and nose were suctioned with bulb syringe at the perineum, dried and stimulated and baby placed skin to skin on mother's abdomen. Cord was clamped and cut once it stopped pulsating. Placenta delivered spontaneously at 2333 and was intact. There was no perineal tear. Fundus firmed down nicely. Bimanual exam performed and a few clots were expressed. EBL 100 ml. Both Mom and baby were left in the delivery room in stable condition. She has done well . is going well and denies nipple pain. Feels breasts starting to fill. Denies headache or dizziness. Appetite is good, voiding well. Using ibuprofen for uterine cramping. Baby's blood type was A pos, so she did receive Rhogam yesterday. Diagnosis: Stroke: No Modified Filiberto Scale: No Symptoms at All Modified Filiberto Scale Score: 0 - Discharge Data Discharge Date: 04/20/21 Discharge Disposition: Home, Self-Care 01 Condition: Good - Referral to Home Health Primary Care Physician: Dinorah Womack MD - Discharge Diagnosis/Problem(s) (1) 39 weeks gestation of SNOMED Code(s): 34265841 ICD Code: Z3A.39 - 39 WEEKS GESTATION OF Status: Acute Current Visit: Yes (2) COURTNEY (amniotic fluid index) borderline low SNOMED Code(s): 63509463, 339594368, 560988291 ICD Code: O28.8 - OTHER ABNORMAL FINDINGS ON SCREENING OF MOTHER Status: Resolved Current Visit: Yes (3) Hypothyroidism SNOMED Code(s): 76053718 ICD Code: E03.9 - HYPOTHYROIDISM, UNSPECIFIED Status: Acute Current Visit: Yes (4) Rh negative status during SNOMED Code(s): 017816578 ICD Code: O26.899 - OTH RELATED CONDITIONS, UNSPECIFIED TRIMESTER; Z67.91 - UNSPECIFIED BLOOD TYPE, RH NEGATIVE Status: Acute Current Visit: Yes (5) Hx of herpes simplex infection SNOMED Code(s): 800001116 ICD Code: Z86.19 - PERSONAL HISTORY OF OTHER INFECTIOUS AND PARASITIC DISEASES Status: Acute Current Visit: Yes (6) Varicose veins during , antepartum SNOMED Code(s): 6703384145 ICD Code: O22.00 - VARICOSE VEINS OF LOW EXTRM IN , UNSP TRIMESTER Status: Acute Current Visit: Yes (7) Encounter for elective induction of labor SNOMED Code(s): 760212923 ICD Code: Z34.90 - ENCNTR FOR SUPRVSN OF NORMAL , UNSP, UNSP TRI MESTER Status: Resolved Current Visit: Yes (8) Normal spontaneous vaginal delivery SNOMED Code(s): 75473502, 607068398 ICD Code: O80 - ENCOUNTER FOR FULL-TERM UNCOMPLICATED DELIVERY Status: Acute Current Visit: Yes (9) Breast feeding status of mother SNOMED Code(s): 997079249 ICD Code: Z39.1 - ENCOUNTER FOR CARE AND EXAMINATION OF LACTATING MOTHER Status: Acute Current Visit: Yes - Patient Instructions Diet: Regular Diet as Tolerated, Drink 8-10+ Glasses/Day Activity: As Tolerated Driving: May Drive Today Showering/Bathing: May Shower Notify Provider of: Fever, Increased Pain, Swelling and Redness, Drainage, Nausea and/or Vomiting - Discharge Plan *PRESCRIPTION DRUG MONITORING PROGRAM REVIEWED*: No *COPY OF PRESCRIPTION DRUG MONITORING REPORT IN PATIENT JESSE: No Home Medications: Home Meds Levothyroxine Sodium [Levothyroxine] 50 mcg PO DAILY 04/18/21 [History] No122/Iron/Folic Acid [ Multi Tablet] 1 each PO DAILY 04/18/21 [History] Benzocaine/Menthol [Dermoplast Pain Relief 20%-0.5% [place]] 1 applic TOP ASDIRECTED PRN canister 04/19/21 [Rx] Docusate Sodium [Colace] 100 mg PO BID PRN cap 04/19/21 [Rx] Ibuprofen [Motrin] 600 mg PO Q6H PRN tablet 04/19/21 [Rx] witch Surekha [Tucks] 1 pad TOP ASDIRECTED PRN pad 04/19/21 [Rx] Oxygen Therapy Mode: Room Air Patient Handouts: Exclusive , and Breast Care, Tips for a Good Latch, and Cracked or Sore Nipples, Storing Breast Milk Referrals: Dinorah Womack MD [Primary Care Provider] - - Discharge Summary/Plan Comment DC Time >30 min.: No Total # of Minutes for Discharge Time: 20 min Discharge Summary/Plan Comment: 30 yo at 39+1 weeks gestation admitted for elective induction of labor due to borderline COURTNEY at 6.5. BPP was done on 04/09/21 and score was 8/8 and COURTNEY 6.2, EFW 7 lb 10 oz. Repeated BPP on 04/13/21 and COURTNEY was 6.5 and 8/8. otherwise has been unremarkable. She does have blood type A neg and antibody negative and received Rhogam 02/06/21. GBS negative. 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 She has been on valacyclovir 500 mg bid since 36 weeks for suppression and she has no prodromal sx and examination of perineum today is negative for any lesions. Other labs include Rubella immune, RPR neg, HIV neg, HBsAg neg, HCV antibody neg. Her TSH was elevated and we did start her on levothyroxine in the first trimester, have been following TSH and current dose is 50 mcg daily. 1 hour glucola was 79. She breastfed with all 3 of her other babies and plans to breastfeed with this baby as well. She has been fully vaccinated for COVID and had her booster dose on 04/10/21. Has had Tdap and influenza vaccine with this . She has moderately severe varicose veins and has been wearing compression stockings during the . She has been feeling some BH, but no contractions. Membranes intact. On exam this am, cervix 1 cm, 50% effaced, vtx and station -2. Cytotec 25 mcg tab was inserted vaginally at 0815 for ripening of the cervix and induction. At 1215, cervix 2 cm, 50% effaced and pitocin IV started to continue induction. She had received epidural around 1700 and was comfortable. AROM performed at 1715 to augment labor and she was 3 cm at that time and pitocin at 18 mu/min. contractions spaced out so pitocin was increased up to 22 mu/min. At 2114 she was still only 3 cm dilated and I was called to come in and evaluate and we decided to place IUPC which was done at about 2129. Cervix was 4-5 cm, 80% effaced and station -1 at that time. Resting tone was 15-20 mm Hg and MVU were about 300. We did increase pitocin to 23 mU/min. By 2314 she was complete, station +2 and uncomfortable with contractions. I came in and we had her set up to push and baby delivered in 1 push. Time of delivery was 2327. Baby girl. weight was 6 lb 8 oz (2.95 kg). There was nuchal cord x 1 that was loose and easily reduced. The cord was also wrapped around her arm and leg and was a long cord. 3 vessels in the cord. Mouth and nose were suctioned with bulb syringe at the perineum, dried and stimulated and baby placed skin to skin on mother's abdomen. Cord was clamped and cut once it stopped pulsating. Placenta delivered spontaneously at 2333 and was intact. There was no perineal tear. Fundus firmed down nicely. Bimanual exam performed and a few clots were expressed. EBL 100 ml. Both Mom and baby were left in the delivery room in stable condition. is going well and denies nipple pain. Breasts are starting to fill. Only using ibuprofen for cramping. Denies headache, dizziness or back pain. No pain at epidural site. Received Rhogam due to baby's blood type A pos. A/P 1. - doing well , continue routine instructions. Follow up in clinic in 6 weeks. 2. - continue to breastfeed on demand 3. RH neg - received Rhogam on 04/19/21. 4. Hypothyroidism - continue levothyroxine 50 mcg daily. Will plan to check TSH and FT4 before 6 week check. 5. Varicose veins - continue pressure stockings. - General Info Date of Service: 04/20/21 Admission Dx/Problem (Free Text: Patient Status Order with Admit Dx/Problem 04/18/21 07:45 Patient Status [ADT] Routine Admission Diagnosis/Problem Admission Diagnosis/Problem Term Subjective Update: Patient is doing well. Vaginal bleeding is slowing, only a small clot today. Voiding well. is going well. Denies nipple pain or bruising. Only using occasional ibuprofen for cramping with nursing. Baby's blood type was A pos, so she did receive her Rhogam . Functional Status: Reports: Pain Controlled, Tolerating Diet, Ambulating, Urinating - Review of Systems General: Reports: No Symptoms HEENT: Reports: No Symptoms Pulmonary: Reports: No Symptoms Cardiovascular: Reports: No Symptoms Gastrointestinal: Reports: No Symptoms Genitourinary: Reports: No Symptoms Musculoskeletal: Reports: No Symptoms Skin: Reports: No Symptoms Neurological: Reports: No Symptoms Psychiatric: Reports: No Symptoms - Patient Data Vitals - Most Recent: Last Vital Signs Temp 36.7 C 04/20/21 04:52 Pulse 75 04/20/21 04:52 Resp 16 04/20/21 04:52 BP 121/69 04/20/21 04:52 Pulse Ox 98 04/20/21 04:52 Weight - Most Recent: 89.494 kg Lab Results - Last 24 hrs: Laboratory Results - last 24 hr 04/19/21 Range/Units 05:23 Blood Type A NEGATIVE Gel Antibody Screen Positive Screen 0 ros/5 flds - neg RhIG Candidate? Yes Rhogam Indicated Yes, baby rh pos H Med Orders - Current: Current Medications Benzocaine/Menthol (Benzocaine/Menthol 20%-0.5% [place] 78 Gm Cannister) 0 gm TOP ASDIRECTED PRN PRN Reason: Perineal Comfort Measure Last Admin: 04/19/21 01:07 MDT Dose: 1 canister Documented by: Docusate Sodium (Docusate Sodium 100 Mg Cap) 100 mg PO BID PRN PRN Reason: Constipation Hydrocortisone Acetate (Hydrocortisone Acetate 25 Mg Supp) 25 mg RECTAL BID PRN PRN Reason: Hemorrhoid pain Ibuprofen (Ibuprofen 600 Mg Tab) 600 mg PO Q6H PRN PRN Reason: Mild pain or fever Last Admin: 04/20/21 04:50 Dose: 600 mg Documented by: Levothyroxine Sodium (Levothyroxine 50 Mcg Tab) 50 mcg PO ACBREAKFAST [place] Last Admin: 04/20/21 05:46 Dose: 50 mcg Documented by: Simethicone (Simethicone 80 Mg Tab.Chew) 80 mg PO Q4H PRN PRN Reason: Gas Witch Surekha (Witch Surekha Medicated Pads 40/Jar) 1 pad TOP ASDIRECTED PRN PRN Reason: Perineal Comfort Measure Last Admin: 04/19/21 01:06 MDT Dose: 1 tub Documented by: Discontinued Medications Acetaminophen (Acetaminophen 325 Mg Tab) 650 mg PO Q4H PRN PRN Reason: Pain (Mild 1-3) and fever Calcium Carbonate/Glycine (Calcium Carbonate 500 Mg Tab.Chew) 1,000 mg PO Q2H PRN PRN Reason: Indigestion Last Admin: 04/18/21 17:03 Dose: 1,000 mg Documented by: Diphenhydramine HCl (Diphenhydramine 50 Mg/Ml Sdv) 25 mg IVPUSH Q6H PRN PRN Reason: pruritis Ephedrine Sulfate (Ephedrine 50 Mg/Ml Sdv) 5 mg IVPUSH ASDIRECTED PRN PRN Reason: Hypotension Famotidine (Famotidine 20 Mg Tab) 20 mg PO ONETIME ONE Stop: 04/18/21 19:33 Last Admin: 04/18/21 19:41 Dose: 20 mg Documented by: Fentanyl (Fentanyl 100 Mcg/2 Ml Sdv) 100 mcg EPIDUR Q3H PRN PRN Reason: Pain Last Admin: 04/18/21 16:12 Dose: 100 mcg Documented by: Fentanyl/Bupivacaine HCl (Bupivacaine/Fentanyl/Ns 100 Ml Bag) 100 ml EPIDUR ASDIRECTED EL[place] Last Admin: 04/18/21 16:12 Dose: 100 ml Documented by: Lactated Ringer's (Ringers, Lactated) 1,000 mls @ 100 mls/hr IV ASDIRECTED ELMA Last Admin: 04/18/21 18:11 Dose: 40 mls/hr Documented by: Oxytocin/Lactated Ringer's (Pitocin In Lr 10 Units/1,000 Ml) 10 unit in 1,000 mls @ 12 mls/hr IV TITRATE ELMA; Protocol Last Titration: 04/18/21 18:07 Dose: 20 munits/min, 120 mls/hr Documented by: Oxytocin/Lactated Ringer's (Pitocin In Lr 10 Units/1,000 Ml) 10 unit in 1,000 mls @ 500 mls/hr IV .CONTINUOUS ELMA Oxytocin/Lactated Ringer's (Pitocin In Lr 20 Units/1,000 Ml) 20 unit in 1,000 mls @ 66 mls/hr IV TITRATE [place]MA; Protocol Last Admin: 04/18/21 19:00 Dose: 66 mls/hr Documented by: Oxytocin/Lactated Ringer's (Pitocin In Lr 20 Units/1,000 Ml) Confirm Administered Dose 20 unit in 1,000 mls @ as directed .ROUTE .STK-MED ONE Stop: 04/18/21 18:57 Last Admin: 04/19/21 00:08 Dose: Not Given Documented by: Lidocaine HCl (Lidocaine 1% 50 Ml Mdv) 20 ml INJECT ONETIME ONE Stop: 04/18/21 07:46 Last Admin: 04/19/21 00:08 Dose: Not Given Documented by: Miscellaneous Medication (Phenylephrine Hcl In 0.9% Nacl 1 Mg/10 Ml Syringe) 0.1 mg IVPUSH Q10M PRN PRN Reason: Hypotension Misoprostol (Misoprostol 25 Mcg (1/4 Of 100 Mcg) Tab) Confirm Administered Dose 25 mcg .ROUTE .STK-MED ONE Stop: 04/18/21 08:14 Last Admin: 04/18/21 08:49 Dose: Not Given Documented by: Misoprostol (Misoprostol 25 Mcg (1/4 Of 100 Mcg) Tab) 25 mcg VAG Q4HR PRN PRN Reason: cervical ripening Last Admin: 04/18/21 08:14 Dose: 25 mcg Documented by: Nalbuphine HCl (Nalbuphine 10 Mg/1 Ml Vial) 10 mg IVPUSH Q2H PRN PRN Reason: Pain Ondansetron HCl (Ondansetron 4 Mg/2 Ml Sdv) 4 mg IVPUSH Q4H PRN PRN Reason: Nausea/Vomiting Ondansetron HCl (Ondansetron 4 Mg/2 Ml Sdv) 4 mg IVPUSH ONETIME PRN PRN Reason: Nausea/Vomiting Sodium Chloride (Sodium Chloride 0.9% 10 Ml Syringe) 10 ml FLUSH ASDIRECTED PRN PRN Reason: Keep Vein Open - Exam General: Reports: Alert, Oriented HEENT: Reports: Pupils Equal, Mucous Membr. Moist/[place] Neck: Reports: Supple Lungs: Reports: Normal Respiratory Effort Cardiovascular: Reports: Regular Rate, Regular Rhythm GI/Abdominal Exam: Normal Bowel Sounds, Soft, No Distention (Female) Exam: Normal External Exam, Enlarged Uterus (Fundus firm, 2 fingers below U), Vaginal Bleeding Rectal (Female) Exam: Deferred Back Exam: Reports: Normal Inspection, Full Range of Motion Extremities: Normal Inspection, Pedal Edema (trace edema, no calf tenderness) Skin: Reports: Warm, Dry, Intact Neurological: Reports: No New Focal Deficit Psy/Mental Status: Reports: Alert, Normal Affect, Normal Mood
== END 2021-04-20 10:05 | disposition home or self-care (01) | DRG 560 ==
LOC: JD.OB 06:58 → OBSVTOIN 23:28 → JD.OB 23:29
PROVIDERS: ADMIT Family Medicine; ATTEND Family Medicine
PROC: 10E0XZZ Delivery of Products of Conception, External Approach (ICD-10-PCS; principal; 2021-04-18)
PROC: 10907ZC Drainage of Amniotic Fluid, Therapeutic from Products of Conception, Via Natural or Artificial Opening (ICD-10-PCS; 2021-04-18)
PROC: 10H07YZ Insertion of Other Device into Products of Conception, Via Natural or Artificial Opening (ICD-10-PCS; 2021-04-18)
PROC: 3E0P7VZ Introduction of Hormone into Female Reproductive, Via Natural or Artificial Opening (ICD-10-PCS; 2021-04-18)
PROC: 3E033VJ Introduction of Other Hormone into Peripheral Vein, Percutaneous Approach (ICD-10-PCS; 2021-04-18)
PROC: 3E0R3BZ Introduction of Anesthetic Agent into Spinal Canal, Percutaneous Approach (ICD-10-PCS; 2021-04-18)
PROC: 00HU33Z Insertion of Infusion Device into Spinal Canal, Percutaneous Approach (ICD-10-PCS; 2021-04-18)
PROC: 3E0334Z Introduction of Serum, Toxoid and Vaccine into Peripheral Vein, Percutaneous Approach (ICD-10-PCS; 2021-04-19)
DX: O28.8 Other abnormal findings on antenatal screening of mother (principal); O99.284 Endocrine, nutritional and metabolic diseases complicating childbirth; Z37.0 Single live birth; E03.9 Hypothyroidism, unspecified; O87.4 Varicose veins of lower extremity in the puerperium; I83.90 Asymptomatic varicose veins of unspecified lower extremity; O98.32 Other infections with a predominantly sexual mode of transmission complicating childbirth; A60.09 Herpesviral infection of other urogenital tract; O26.893 Other specified pregnancy related conditions, third trimester; Z20.822 Contact with and (suspected) exposure to COVID-19; Z3A.39 39 weeks gestation of pregnancy; Z67.11 Type A blood, Rh negative; Z88.0 Allergy status to penicillin
CPT/HCPCS: 01967; 36415; 51702; 59025; 59409; 85027; 85461; 86592; 86850; 86870; 86900; 86901; A9270-GY; J2590; J2790; J3010; J3490; J7120; U0002

== ENCOUNTER 2022-08-11 20:33 | Emergency (ER) | payer BC ==
[2022-08-11] MEDS ORDERED: Ketorolac 60 MG/2 ML SDV IM ONE (21:04)
== END 2022-08-11 23:34 | disposition home or self-care (01) ==
LOC: JD.ED 20:33
DX: S86.012A Strain of left Achilles tendon, initial encounter (principal); E03.9 Hypothyroidism, unspecified; Z88.0 Allergy status to penicillin; Z79.899 Other long term (current) drug therapy; X50.0XXA Overexertion from strenuous movement or load, initial encounter; Y93.68 Activity, volleyball (beach) (court)
CPT/HCPCS: 73610; 76881; 96372; 99284; J1885

== ENCOUNTER 2022-08-16 10:18 | Day surgery (SDC) | payer BC ==
[~2022-08-16 10:18] MED LIST: EPINEPHrine 1 MG/ML SDV ONE; Ropivacaine 0.5% 5 MG/ML 30 ML SDV ONE
[2022-08-16] MEDS ORDERED: HYDROmorphone 0.5 MG/0.5 ML Syringe IVPUSH PRN ×2 (10:39→14:28)
[2022-08-16] MEDS ORDERED: Ondansetron 4 MG/2 ML SDV IVPUSH PRN ×2 (10:39→14:28)
[2022-08-16] MEDS ORDERED: fentaNYL 100 MCG/2 ML SDV IVPUSH PRN ×2 (10:39→14:28)
[2022-08-16] MEDS ORDERED: fentaNYL 100 MCG/2 ML SDV ONE ×2 (10:44→11:19)
[2022-08-16] MEDS ORDERED: Lidocaine 1% 2 ML ONE ×2 (10:44→13:23)
[2022-08-16] MEDS ORDERED: Propofol 200 MG/20 ML SDV ONE ×2 (10:45→11:19)
[2022-08-16] MEDS ORDERED: Midazolam 1 MG/ML 2 ML SDV ONE ×3 (10:45→13:31)
[2022-08-16] MEDS ORDERED: EPINEPHrine 1 MG/ML SDV ONE (10:51)
[2022-08-16] MEDS ORDERED: Ropivacaine 0.5% 5 MG/ML 30 ML SDV ONE (10:51)
[2022-08-16] MEDS ORDERED: Lidocaine 1%/Sod Bicarbonate in NS 8.4% 1 ML Syringe IDERM PRN (11:10)
[2022-08-16] MEDS ORDERED: Sodium Chloride 0.9% 10 ML Syringe FLUSH PRN (11:10)
[2022-08-16] MEDS ORDERED: Lactated Ringers 1,000 ML IV SCH (11:15)
[2022-08-16] MEDS ORDERED: ceFAZolin 2 GM Vial ONE (11:19)
[2022-08-16] MEDS ORDERED: Dexamethasone 4 MG/ML 5 ML MDV ONE (11:57)
[2022-08-16] MEDS ORDERED: Bupivacaine 0.25% 10 ML SDV ONE (12:14)
[2022-08-16] MEDS ORDERED: Dexmedetomidine 200 MCG/2 ML SDV ONE (13:36)
[2022-08-16] MEDS ORDERED: Ketorolac 30 MG/ML SDV ONE (14:24)
[2022-08-16] MEDS ORDERED: Acetaminophen/HYDROcodone 325-5 MG Tab PO ONE (15:03)
== END 2022-08-16 16:30 | disposition home or self-care (01) ==
LOC: JD.SDS 10:18
PROVIDERS: ATTEND Orthopaedic Surgery
DX: S86.012A Strain of left Achilles tendon, initial encounter (principal); E03.9 Hypothyroidism, unspecified; Z88.1 Allergy status to other antibiotic agents; Z79.890 Hormone replacement therapy; Z79.899 Other long term (current) drug therapy; X58.XXXA Exposure to other specified factors, initial encounter; Y93.68 Activity, volleyball (beach) (court)
CPT/HCPCS: 27650; 64445; 64447; 81025; A9270; J0171; J0690; J1100; J1885; J2250; J2704; J2795; J3010; J3490; J7120; 01472; 64450

== ENCOUNTER 2023-07-08 07:12 | Inpatient (IN) | payer BC ==
[2023-07-08] MEDS ORDERED: Sodium Chloride 0.9% 10 ML Syringe FLUSH PRN (07:16)
[2023-07-08] MEDS ORDERED: Ondansetron 4 MG/2 ML SDV IVPUSH PRN (07:16)
[2023-07-08] MEDS ORDERED: Acetaminophen 325 MG Tab PO PRN (07:16)
[2023-07-08] MEDS ORDERED: Lidocaine 1% 50 ML MDV INJECT PRN (07:16)
[2023-07-08] MEDS ORDERED: Famotidine 20 MG Tab PO PRN (07:16)
[2023-07-08] MEDS ORDERED: Calcium Carbonate 500 MG Tab.Chew PO PRN (07:16)
[2023-07-08] MEDS ORDERED: Nalbuphine HCl 10 MG/ 1ML Amp IVPUSH PRN (07:16)
[2023-07-08] MEDS ORDERED: Oxytocin/Lactated Ringers 30 UNIT/500 ML BAG IV SCH ×2 (07:30)
[2023-07-08 07:45] LABS: BASOPHILS PERCENT AUTO 0.4 % (0.0-1.0); EOSINOPHILS ABSOLUTE AUTO 0.1 K/mm3 (0.0-0.4); EOSINOPHILS PERCENT AUTO 1.9 % (0.0-6.0); HEMATOCRIT 33.4 % (37.0-47.0); HEMOGLOBIN 11.3 gm/dl (12.0-16.0); IMMATURE GRAN ABSOLUTE AUTO 0.03 K/mm3 (0.00-0.05); IMMATURE GRAN PERCENT AUTO 0.4 % (0.0-0.4); LYMPHOCYTES ABSOLUTE AUTO 2.5 K/mm3 (1.0-4.8); LYMPHOCYTES PERCENT AUTO 35.7 % (24.0-44.0); MEAN CORPUSCULAR HGB CONC 33.8 g/dl (32.0-36.0); MEAN PLATELET VOLUME 10.3 fl (9.4-12.3); MONOCYTES ABSOLUTE AUTO 0.3 K/mm3 (0.0-0.8); MONOCYTES PERCENT AUTO 4.8 % (0.0-8.0); NEUTROPHILS ABSOLUTE AUTO 3.9 K/mm3 (1.8-7.7); NEUTROPHILS PERCENT AUTO 56.8 % (41.0-71.0); PLATELET COUNT,PLT 101 K/mm3 (150-400); RED BLOOD CELL COUNT 3.53 M/mm3 (4.10-5.30); WHITE BLOOD CELL COUNT,WBC 6.91 K/mm3 (3.9-11.3)
[2023-07-08 07:46] LABS: MEAN CORPUSCULAR VOLUME 94.6 fl (83.0-99.0)
[2023-07-08] MEDS: Lactated Ringers 1,000 ML IV SCH ×2 (08:08→14:40)
[2023-07-08] MEDS ORDERED: Sodium Chloride 0.9% 10 ML Syringe FLUSH SCH (09:00)
[2023-07-08] MEDS ORDERED: diphenhydrAMINE 50 MG/ML SDV IVPUSH PRN (14:06)
[2023-07-08] MEDS ORDERED: ePHEDrine 50 MG/ML SDV IVPUSH PRN (14:06)
[2023-07-08] MEDS ORDERED: Bupivacaine/fentaNYL/NS 100 ML Bag EPIDUR PRN (14:06)
[2023-07-08] MEDS ORDERED: fentaNYL 100 MCG/2 ML SDV EPIDUR PRN (14:06)
[2023-07-08] MEDS ORDERED: Witch Hazel Medicated Pads 40/Jar TOP PRN (17:22)
[2023-07-08] MEDS ORDERED: Benzocaine/Menthol 20%-0.5% Spray 78 GM Cannister TOP PRN (17:22)
[2023-07-08] MEDS ORDERED: Hydrocortisone Acetate 25 MG Supp RECTAL PRN (17:22)
[2023-07-08] MEDS ORDERED: Docusate Sodium 100 MG Cap PO PRN (17:22)
[2023-07-08] MEDS ORDERED: Bupivacaine 0.25% 10 ML SDV ONE (18:00)
[2023-07-08] MEDS ORDERED: Lidocaine 1% 10 ML MDV ONE (18:00)
[2023-07-08] MEDS: Ibuprofen 600 MG Tab PO SCH (19:20)
[2023-07-09] MEDS: Ibuprofen 600 MG Tab PO SCH ×3 (01:35→15:22)
[2023-07-09 04:23] LABS: BASOPHILS PERCENT AUTO 0.2 % (0.0-1.0); EOSINOPHILS ABSOLUTE AUTO 0.1 K/mm3 (0.0-0.4); EOSINOPHILS PERCENT AUTO 0.7 % (0.0-6.0); HEMATOCRIT 34.1 % (37.0-47.0); HEMOGLOBIN 11.5 gm/dl (12.0-16.0); IMMATURE GRAN ABSOLUTE AUTO 0.04 K/mm3 (0.00-0.05); IMMATURE GRAN PERCENT AUTO 0.4 % (0.0-0.4); LYMPHOCYTES ABSOLUTE AUTO 2.8 K/mm3 (1.0-4.8); LYMPHOCYTES PERCENT AUTO 26.9 % (24.0-44.0); MEAN CORPUSCULAR HGB CONC 33.7 g/dl (32.0-36.0); MEAN PLATELET VOLUME 10.4 fl (9.4-12.3); MONOCYTES ABSOLUTE AUTO 0.6 K/mm3 (0.0-0.8); MONOCYTES PERCENT AUTO 5.6 % (0.0-8.0); NEUTROPHILS ABSOLUTE AUTO 6.9 K/mm3 (1.8-7.7); NEUTROPHILS PERCENT AUTO 66.2 % (41.0-71.0); PLATELET COUNT,PLT 96 K/mm3 (150-400); RED BLOOD CELL COUNT 3.59 M/mm3 (4.10-5.30); WHITE BLOOD CELL COUNT,WBC 10.45 K/mm3 (3.9-11.3)
[2023-07-09] MEDS ORDERED: Levothyroxine 50 MCG Tab PO SCH (06:00)
[2023-07-09] MEDS: Prenatal Multivitamin with Calcium/Folic Acid/Iron Tab PO SCH ×2 (07:45→12:16)
== END 2023-07-09 17:15 | disposition home or self-care (01) | DRG 560 ==
LOC: JD.OB 07:12 → OBSVTOIN 16:55 → JD.OB 16:56
PROVIDERS: ADMIT Family Medicine; ATTEND Family Medicine
PROC: 10E0XZZ Delivery of Products of Conception, External Approach (ICD-10-PCS; principal; 2023-07-08)
PROC: 3E033VJ Introduction of Other Hormone into Peripheral Vein, Percutaneous Approach (ICD-10-PCS; 2023-07-08)
PROC: 10907ZC Drainage of Amniotic Fluid, Therapeutic from Products of Conception, Via Natural or Artificial Opening (ICD-10-PCS; 2023-07-08)
PROC: 3E0R3BZ Introduction of Anesthetic Agent into Spinal Canal, Percutaneous Approach (ICD-10-PCS; 2023-07-08)
PROC: 00HU33Z Insertion of Infusion Device into Spinal Canal, Percutaneous Approach (ICD-10-PCS; 2023-07-08)
PROC: 3E0334Z Introduction of Serum, Toxoid and Vaccine into Peripheral Vein, Percutaneous Approach (ICD-10-PCS; 2023-07-09)
DX: O99.284 Endocrine, nutritional and metabolic diseases complicating childbirth (principal); E03.9 Hypothyroidism, unspecified; O48.0 Post-term pregnancy; Z3A.40 40 weeks gestation of pregnancy; Z37.0 Single live birth; O98.313 Other infections with a predominantly sexual mode of transmission complicating pregnancy, third trimester; A60.00 Herpesviral infection of urogenital system, unspecified; O26.893 Other specified pregnancy related conditions, third trimester; Z67.11 Type A blood, Rh negative; O22.03 Varicose veins of lower extremity in pregnancy, third trimester; I83.90 Asymptomatic varicose veins of unspecified lower extremity; Z88.1 Allergy status to other antibiotic agents
CPT/HCPCS: 36415; 59020; 59409; 85025; 85461; 86592; 86850; 86870; 86900; 86901; A9270-GY; J2790; J3010; J3490; J7120; J7999

== ENCOUNTER 2023-07-10 08:46 | Emergency (ER) | payer BC ==
[2023-07-10] MEDS ORDERED: Ibuprofen 600 MG Tab PO ONE (09:04)
[2023-07-10 09:29] LABS: APPEARANCE,URINE CLEAR (Clear); BILIRUBIN,URINE NEGATIVE (Negative); COLOR,URINE YELLOW (Yellow); GLUCOSE,URINE NEGATIVE (Negative); KETONES,URINE NEGATIVE (Negative); LEUKOCYTE ESTERASE,URINE NEGATIVE (Negative); NITRITE,URINE NEGATIVE (Negative); OCCULT BLOOD,URINE TRACE-INTACT (Negative); PROTEIN,URINE NEGATIVE (Negative); UROBILINOGEN,URINE 0.2 (0.2-1.0)
[2023-07-10 09:37] LABS: BACTERIA,URINE RARE /hpf (FEW); MUCUS,URINE NOT SEEN /hpf (FEW); SQUAMOUS EPITHELIAL CELLS,UR 0-5 /hpf (0-5); WBC,URINE 0-5 /hpf (0-5)
[2023-07-10 09:50] LABS: CORONAVIRUS COVID-19 NAA NEGATIVE (NEGATIVE); INFLUENZA A NAA NEGATIVE (NEGATIVE); RESPIRATORY SYNCYTIAL VIR NAA NEGATIVE (NEGATIVE)
[2023-07-10] MEDS ORDERED: Dextrose 5%-0.9% NaCl 1,000 ML IV SCH (10:00)
[2023-07-10 10:26] LABS: BASOPHILS PERCENT AUTO 0.2 % (0.0-1.0); EOSINOPHILS PERCENT AUTO 0.2 % (0.0-6.0); HEMATOCRIT 34.3 % (37.0-47.0); HEMOGLOBIN 11.7 gm/dl (12.0-16.0); IMMATURE GRAN ABSOLUTE AUTO 0.04 K/mm3 (0.00-0.05); IMMATURE GRAN PERCENT AUTO 0.4 % (0.0-0.4); LYMPHOCYTES ABSOLUTE AUTO 0.9 K/mm3 (1.0-4.8); LYMPHOCYTES PERCENT AUTO 8.7 % (24.0-44.0); MEAN CORPUSCULAR HEMOGLOBIN 32.1 pg (28.0-32.0); MEAN CORPUSCULAR HGB CONC 34.1 g/dl (32.0-36.0); MEAN CORPUSCULAR VOLUME 94.2 fl (83.0-99.0); MEAN PLATELET VOLUME 9.4 fl (9.4-12.3); MONOCYTES ABSOLUTE AUTO 0.6 K/mm3 (0.0-0.8); MONOCYTES PERCENT AUTO 5.8 % (0.0-8.0); NEUTROPHILS PERCENT AUTO 84.7 % (41.0-71.0); PLATELET COUNT,PLT 102 K/mm3 (150-400); RED BLOOD CELL COUNT 3.64 M/mm3 (4.10-5.30); WHITE BLOOD CELL COUNT,WBC 10.66 K/mm3 (3.9-11.3)
[2023-07-10 10:44] LABS: A/G RATIO 0.6 (1-2); ALBUMIN 2.4 g/dl (3.4-5.0); ANION GAP 14.8 (5-15); BILIRUBIN TOTAL 0.5 mg/dL (0.2-1.0); BUN/CREATININE RATIO 13.3 (14-18); C-REACTIVE PROTEIN 1.2 mg/dL (<1.0); CREATININE 0.9 mg/dL (0.55-1.02); EST CRCL DRUG DOSING (CG) 85.65 mL/min; POTASSIUM,K 3.8 mEq/L (3.5-5.1); PROTEIN TOTAL,TP 6.4 g/dl (6.4-8.2)
[2023-07-12 15:19] LABS: T4 FREE 0.82 ng/dL (0.76-1.46); TSH 1.761 uIU/mL (0.358-3.74)
== END 2023-07-10 11:59 | disposition home or self-care (01) ==
LOC: JD.ED 08:46
DX: R50.9 Fever, unspecified (principal); M79.10 Myalgia, unspecified site; E03.9 Hypothyroidism, unspecified; Z79.899 Other long term (current) drug therapy; Z88.0 Allergy status to penicillin
CPT/HCPCS: 0241U; 36415; 71045; 80053; 81001; 85025; 86140; 87040; 96360; 99283; A9270; C1758; J7042; 84439; 84443; 84481

== ENCOUNTER 2025-05-03 09:44 | Inpatient (IN) | payer BC ==
[2025-05-03] MEDS ORDERED: Sodium Chloride 0.9% 10 ML Syringe FLUSH PRN (09:54)
[2025-05-03] MEDS ORDERED: Ondansetron 4 MG/2 ML SDV IVPUSH PRN (09:54)
[2025-05-03] MEDS ORDERED: Misoprostol 25 MCG (1/4 of 100 MCG) Tab VAG PRN (09:54)
[2025-05-03] MEDS ORDERED: Nalbuphine 10 MG/1 ML Vial IVPUSH PRN (09:54)
[2025-05-03] MEDS ORDERED: Oxytocin/0.9 % Sodium Chloride 30 UNIT/500 ML BAG IV SCH (10:00)
[2025-05-03 10:29] LABS: BASOPHILS ABSOLUTE AUTO 0.0 K/mm3 (0.0-0.2); BASOPHILS PERCENT AUTO 0.4 % (0.0-1.0); EOSINOPHILS ABSOLUTE AUTO 0.1 K/mm3 (0.0-0.4); EOSINOPHILS PERCENT AUTO 0.7 % (0.0-6.0); IMMATURE GRAN ABSOLUTE AUTO 0.05 K/mm3 (0.00-0.05); IMMATURE GRAN PERCENT AUTO 0.7 % (0.0-0.4); LYMPHOCYTES ABSOLUTE AUTO 1.7 K/mm3 (1.0-4.8); LYMPHOCYTES PERCENT AUTO 22.1 % (24.0-44.0); MEAN PLATELET VOLUME 9.5 fl (9.4-12.3); MONOCYTES ABSOLUTE AUTO 0.4 K/mm3 (0.0-0.8); MONOCYTES PERCENT AUTO 5.4 % (0.0-8.0); NEUTROPHILS ABSOLUTE AUTO 5.4 K/mm3 (1.8-7.7); NEUTROPHILS PERCENT AUTO 70.7 % (41.0-71.0); NRBC ABSOLUTE 0.00 (0.00-0.02); NRBC PERCENT 0.0 % (0.0-0.2); PLATELET COUNT,PLT 141 K/mm3 (150-400); RED BLOOD CELL COUNT 3.74 M/mm3 (4.10-5.30); WHITE BLOOD CELL COUNT,WBC 7.64 K/mm3 (3.9-11.3)
[2025-05-03] MEDS: Penicillin G Potassium 5 MILLUNITS in Sodium Chloride 0.9% 100 ML IV ONE (10:34)
[2025-05-03] MEDS: Lactated Ringers 1,000 ML IV SCH (10:35)
[2025-05-03] MEDS: Misoprostol 25 MCG (1/4 of 100 MCG) Tab VAG ONE (10:38)
[2025-05-03] MEDS: Penicillin G Potassium 2.5 MILLUNITS in Sodium Chloride 0.9% 100 ML IV SCH (14:27)
[2025-05-03] MEDS: Oxytocin/0.9 % Sodium Chloride 30 UNIT/500 ML BAG IV SCH (14:53)
[2025-05-03] MEDS ORDERED: ePHEDrine 50 MG/ML SDV IVPUSH PRN (16:39)
[2025-05-03] MEDS ORDERED: diphenhydrAMINE 50 MG/ML SDV IVPUSH PRN (16:39)
[2025-05-03] MEDS: Bupivacaine/fentaNYL/NS 100 ML Bag EPIDUR PRN (16:49)
[2025-05-04] MEDS: Benzocaine/Menthol 20%-0.5% Spray 78 GM Cannister TOP PRN (00:06)
[2025-05-04] MEDS: Witch Hazel Medicated Pads 40/Jar TOP PRN (00:06)
[2025-05-04] MEDS: Prenatal Multivitamin with Calcium/Folic Acid/Iron Tab PO SCH (10:20)
== END 2025-05-04 22:40 | disposition home or self-care (01) | DRG 560 ==
LOC: JD.OB 09:44 → OBSVTOIN 09:44 → JD.OB 21:31
PROVIDERS: ADMIT Family Medicine; ATTEND Family Medicine
PROC: 10E0XZZ Delivery of Products of Conception, External Approach (ICD-10-PCS; principal; 2025-05-03)
PROC: 10907ZC Drainage of Amniotic Fluid, Therapeutic from Products of Conception, Via Natural or Artificial Opening (ICD-10-PCS; 2025-05-03)
PROC: 3E033VJ Introduction of Other Hormone into Peripheral Vein, Percutaneous Approach (ICD-10-PCS; 2025-05-03)
PROC: 3E0P7VZ Introduction of Hormone into Female Reproductive, Via Natural or Artificial Opening (ICD-10-PCS; 2025-05-03)
PROC: 3E0S3BZ Introduction of Anesthetic Agent into Epidural Space, Percutaneous Approach (ICD-10-PCS; 2025-05-03)
DX: O48.0 Post-term pregnancy (principal); Z3A.40 40 weeks gestation of pregnancy; Z37.0 Single live birth; O99.284 Endocrine, nutritional and metabolic diseases complicating childbirth; O69.81X0 Labor and delivery complicated by cord around neck, without compression, not applicable or unspecified; O99.824 Streptococcus B carrier state complicating childbirth; O98.32 Other infections with a predominantly sexual mode of transmission complicating childbirth; A60.00 Herpesviral infection of urogenital system, unspecified; O87.4 Varicose veins of lower extremity in the puerperium; I83.93 Asymptomatic varicose veins of bilateral lower extremities
CPT/HCPCS: 36415; 51702; 59025; 59409; 85025; 85461; 86592; 86850; 86900; 86901; A9270-GY; J2540; J2791; J3490; J7120; J7999